=== PATIENT | female | born 1985 | race Caucasian/White ===

== ENCOUNTER 2018-06-11 02:09 | Inpatient (IN) ==
--- OUTSIDE RECORDS SUMMARY | 2018-06-11 02:15 | External Medical Summary | Continuity of Care Document ---
:1985 Author Organization [facility] Address [address] [place], [place] [id number] Phone Care Team Providers Name Role Phone Tony Denney DO Unavailable Allergies, Adverse Reactions, Alerts Substance Reaction Severity Status Penicillins Unknown Unknown Active Medications Medication Instructions Dosage Effective Dates Status Comments (start - stop) cetirizine 10 mg take 1 tablet by 10 MG - Active tablet oral route every day Plus take 1 tablet by Not Available - Active (calcium carbonate) oral route every 27 mg iron-1 mg day tablet esomeprazole take 1 capsule by 20 MG - Active magnesium 20 mg oral route every capsule,delayed day release Singulair 10 mg take 1 tablet by 10 MG - Active tablet oral route every day in the evening as needed Nasal Allergy 55 mcg - Active spray aerosol Problems Condition Effective Dates (start - stop) Clinical Status Decreased movements, third - trimester, unsp Encntr for suprvsn of normal first - preg, third trimester 35 weeks gestation of - 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 exam (general) (routine) w/o abn findings Pap Smear Screening, Cervix Encounter for surveillance of contraceptive pills Encntr for suprvsn of normal , unsp, unsp trimester Encntr for suprvsn of normal first - preg, second trimester 14 weeks gestation of - Maternal care for excess growth, - second tri, unsp Encntr for suprvsn of normal first - preg, second trimester 26 weeks gestation of - Chronic sinusitis, unspecified - Encntr for suprvsn of normal first - preg, first trimester 12 weeks gestation of - Matern care for oth or susp poor fetl - grth, 2nd tri, unsp 19 weeks gestation of - Maternal care for excess growth, - third trimester, unsp 29 weeks gestation of - 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 exam (general) (routine) w/o abn findings Encounter for oth general cnsl and advice on procreation Encntr for suprvsn of normal first - preg, first trimester 10 weeks gestation of - Encntr for suprvsn of normal first - preg, second trimester 19 weeks gestation of - Encntr for suprvsn of normal first - preg, second trimester 23 weeks gestation of - Encntr for suprvsn of normal first - preg, third trimester 38 weeks gestation of - Encntr for suprvsn of normal first - preg, third trimester 29 weeks gestation of - Encntr for suprvsn of normal first - preg, third trimester 31 weeks gestation of - Encntr for suprvsn of normal first - preg, third trimester 37 weeks gestation of - Encntr for suprvsn of normal first - preg, third trimester Encounter For Screening For - Streptococcus B 36 weeks gestation of - Encntr for suprvsn of normal first - preg, third trimester 33 weeks gestation of - Encntr for suprvsn of normal , unsp, unsp trimester Less than 8 weeks gestation of - Initiation of Oral Contraceptives - Active Procedures Procedure Date non-stress test OB Visit 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 Provider: Health PEDRO LUIS, first preg, third 8 700 Bety Acuna PO Box weeks Medical , 700 1522, gestation of [facility], , [facility] [address] SANTOS, 120, Vinayak 120, [id number], Ashish Hinojosa, TOM SANTOS, tel: [phone]. , [place]. tel: tel: [phone] Ottoniel Hughesr for May-0 Ac[place] Referring In Women suprvsn of normal 7-201 Bety. Provider: Health PEDRO LUIS, first preg, third 8 700 Bety [place] PO Box [id number] weeks Medical , 700 1522, gestation of [facility], , [facility] [address] SANTOS, 120, Vinayak 120, [id number], Ashish Hinojosa, TOM SANTOS, tel: [phone]. , [place]. tel: tel: [phone] Ottoniel Braunntr for Apr-3 [place] Referring In Womens suprvsn of normal 1-201 Bety. Provider: Health PEDRO LUIS, first preg, third 8 700 Bety Acuna PO Box trimesterEncounte Medical K, 700 1522, r For [facility] [place], Screening For , [facility] Dr SANTOS, Streptococcus B36 120, Vinayak 120, [id number], weeks gestation Ashish Hinojosa, [place] of TOM SANTOS, tel: [phone]. , [place]. tel: tel: [phone] Ottoniel Hinojosa Decreased Apr-2 Acuna Referring In Womens movements, third 4-201 Bety. Provider: Health PA, trimester, 8 700 Bety [place] PO Box unspEncntr for Medical K, 700 1522, suprvsn of normal [facility], first preg, third , [facility] Dr SANTOS, [email or web address] weeks 120, Vinayak 120, , gestation of Ashish Hinojosa, TOM, TOM, tel: [phone]. , [place]. tel: tel: [phone] Ottoniel Hinojosa Encntr for Jaret-1 Acuna Referring In Womens suprvsn of normal 1-201 Bety. Provider: Health PA, first preg, third 8 700 Bety [place] PO Box [email or web address] weeks Medical K, 700 1522, gestation of [facility], , [facility] Dr SANTOS, 120, Vinayak 120, , Ashish Hinojosa, TOM, TOM, tel:[phone]. , [place]. tel: tel: [phone] Ottoniel Hinojosa Encntr for Joaquín-2 Acuna Referring In Womens suprvsn of normal 8-201 Bety. Provider: Health PA, first preg, third 8 700 Bety Acuna PO Box [email or web address] weeks Medical K, 700 1522, gestation of [facility], , [facility] Dr SANTOS, 120, Vinayak 120, , Ashish Hinojosa, TOM SANTOS, tel: [phone]. , [place]. tel: tel: [phone] Ottoniel Hinojosa Encntr for Joaquín-1 Acuna Referring In Womens suprvsn of normal 4-201 Bety. Provider: Health PA, first preg, third 8 700 Bety [place] PO Box [email or web address] weeks Medical K, 700 1522, gestation of [facility], , [facility] Dr SANTOS, 120, Vinayak 120, , Ashish Hinojosa, TOM SANTOS, tel: [phone]. , [place]. tel: tel: [phone] Ottoniel Hinojosa Maternal care for Joaquín-1 Acuna Referring In Womens Ultrasound excess 4-201 Bety. Provider: Peña CLOUD, growth, third 8 700 Bety [place] PO Box trimester, [email or web address] Medical , 700 1522, weeks gestation [facility], of , [facility] Dr SANTOS, 120, Vinayak 120, [id number], Ashish Hinojosa, TOM, [place], tel: [phone]. , [place]. tel: tel: [phone] Ottoniel Hinojosa Maternal care for May-2 Acuna Referring In Womens excess 5-201 Bety. Provider: Peña CLOUD, growth, second 8 700 Bety [place] PO Box tri, unspEncntr [facility], 700 1522, for suprvsn of [facility], normal first , [facility] Dr SANTOS, preg, second 120, Vinayak 120, , [id number] weeks Ashish Hinojosa, gestation of TOM, TOM, tel: [phone]. , [place]. tel: tel: [phone] Ottoniel Hinojosa Encntr for May-0 Acuna Referring In Womens suprvsn of normal 3-201 Bety. Provider: Peña CLOUD, first preg, 8 700 Bety Cauna PO Box second Medical , 700 1522, [email or web address] weeks [facility], gestation of , [facility] Dr SANTOS, 120, Vinayak 120, , Ashish Hinojosa, TOM, [place], tel: [phone]. , [place]. tel: tel: [phone] Ottoniel Hinojosa Encntr for Apr-0 Acuna Referring In Womens suprvsn of normal 5-201 Bety. Provider: Peña CLOUD, first preg, 8 700 Bety [place] PO Box second Medical , 700 1522, [id number] weeks [facility], gestation of , [facility] Dr SANTOS, 120, Vinayak 120, [id number], Ashish Hinojosa, TOM, TOM, tel: [phone]. , [place]. tel: tel: [phone] Ottoniel Hinojosa Matern care for Apr-0 Acuna Referring In Womens Ultrasound oth or susp poor 5-201 Bety. Provider: Peña CLOUD, fetl grth, 2nd 8 700 Bety [place] PO Box tri, [id number] weeks Medical , 700 1522[facility] Dr SANTOS, 120, Vinayak 120, [id number], Ashish Hinojosa, [place] TOM SANTOS, tel: [phone]. , [place]. tel: tel: [phone] Ottoniel Hinjoosa Encntr for Mar-0 Acuna Referring In Womens suprvsn of normal 5-201 Bety. Provider: Peña CLOUD, first preg, 8 700 Bety [place] PO Box second Medical , 700 1522, [email or web address] [facility] Dr, [facility] Dr SANTOS, 120, Vinayak 120, , Ashish Hinojosa, [place] TOM, TOM, tel: [phone]. , [place]. tel: tel: [phone] Ottoniel Hinojosa Chronic Feb-1 Acuna Referring In Womens sinusitis, 9-201 Bety. Provider: Peña CLOUD, vitaliyifiedEncntr 8 700 Bety Acuna PO Box for suprvsn of Medical K, 700 1522, normal first [facility] [place], preg, first , [facility] Dr SANTOS, [id number] weeks 120, Vinayak 120, , gestation of Ashish Hinojosa, [place] TOM, TOM, tel: [phone]. , [place]. tel: tel: [phone] Ottoniel Hinojosa Encntr for Feb-0 Acuna Referring In Womens suprvsn of normal 5-201 Bety. Provider: Peña CLOUD, first preg, first 8 700 Bety [place] PO Box [id number] weeks Medical , 700 1522, gestation of [facility] [place], , [facility] Dr SANTOS, 120, Vinayak 120, , Ashish Hinojosa, TOM SANTOS, tel: [phone]. , [place]. tel: tel: [phone] Ottoniel Hinojosa Encntr for Oct- Acuna Referring In Womens suprvsn of normal 5-201 Bety. Provider: Peña CLOUD, , unsp, 8 700 Bety Acuna PO Box [facility], 700 1522, trimesterLess [facility] [place], than 8 weeks , [facility] [address] SANTOS, gestation of 120, Vinayak 120, , Ashish Hinojosa, TOM, TOM, tel:[phone]. , [place]. tel: tel: [phone] Ottoniel Hinojosa Encntr for Sep-2 Acuna Referring In Womens suprvsn of normal 7-201 Bety. Provider: Peña CLOUD, , unsp, 7 700 Bety [place] [facility] 700 [facility]22, [facility] [place], , [facility] Dr SANTOS, 120, Vinayak 120, , Ashish Hinojosa, TOM, TOM, tel: [phone]. , [place]. 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 Provider: Peña CLOUD, (routine) w/o abn 7 700 Bety [place] [facility] and advice , [facility] Dr SANTOS, on procreation 120, Vinayak 120, , Ashish Hinojosa, TOM, TOM, tel: [phone]. , [place]. 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 Provider: Peña CLOUD, (routine) w/o abn 6 700 Bety Acuna PO Box findingsPap Smear Medical K, 700 1522, Screening, [place] Roselyn Joe CervixEncchelsey [place], [facility] Dr SANTOS, for surveillance 120, Vinayak 120, , of contraceptive Ashish [place], [place], tel: [phone]. , [place]. tel: tel: [phone] Associates Ashish Nov- Acuna In Womens 5-200 Bety. [facility], 8 700 PO Box Medical 1522, [facility] [place], , [place], 120, [id number], [place], [place], tel: [phone] , [place]. tel: [phone] Family History Family Member Diagnosis Age At Onset Close relative Lymphoma No family history of Thyroid Disorder Mother Hypertension Father Hypertension No family history of Cardiovascular Disease No family history of Stroke Maternal Grandfather Lung Disease No family history of Diabetes Maternal uncle Cancer, colon No family history of Breast Cancer No family history of Ovarian Cancer Maternal Grandfather Melanoma Immunizations Vaccine Date Status Comments Tdap completed Source: New Immunization Record Influenza, injectable, completed Source: New Immunization Record quadrivalent, preservative free, 3 yrs or older Payers Payer name Insurance type Covered democrat ID Authorization(s) [facility] CI [id number] [facility] [id number] [facility] CI [id number] [facility] CI [id number] Social History Type Description Quantity Date Captured Alcohol Use Details No Caffeine Use Details Unknown Tobacco Use Status Unknown Smoking Status Never smoker Vital Signs Date / Height Weight BMI Pulse Blood Temperature Respiratory Body Head BMI Time: Rate Pressure Rate Surface Circumference percentile Area 279.90 36.6 138/78 -2018 lbs 2 mm[Hg] 5:09 kg/m PM eter (2) 279.90 36.6 -2018 lbs 2 4:30 kg/m PM eter (2) Chief Complaint And Reason For Visit Unknown Chief Complaint And Reason For Visit Reason For Referral Reason For Referral Unknown Plan Of Care Date Type Action Status Goal Lifestyle education regarding completed diet Goal Lifestyle education regarding completed diet Appointment Hind, Sushila BOOKED Future Order: Radiology Order Complete OB Ultrasound > 14 Weeks Ordered ([id number]) Future Order: Radiology Order Ultrasound OB Follow-up ([id number]) Ordered Date Type Problem Goal Intervention Status Start Date Unknown. History Of Present Illness Encounter Date Complaint History Of Present Illness This patient has no known history of present illness Functional Status Encounter Date Functional Assessment Cognitive Assessment Unknown Medications Administered Medication Instructions Dosage Effective Dates (start - stop) Status Comments Drug Treatment Unknown Instructions Date Instruction Additional Information labor signs group B strep screening gestational glucose lab screening HIV and other routine tests risk factors identified by history anticipated course of care nutrition and weight gain counseling, special diet toxoplasmosis precautions (cats / raw meat) sexual activity exercise indications for ultrasound influenza vaccine environmental / work hazards travel tobacco (ask, advise, assess, assist and arrange) alcohol illicit / recreational drugs use of any medications (including supplements, vitamins, herbs, OTC drugs) smoking counseling domestic violence seat belt use childbirth classes / hospital facilities hospital registration genetic testing new ob handbook Zika virus assessment & precautions Giving encouragement to exercise Related to Body mass index 33.0-33.9 Lifestyle education regarding diet Related to Body mass index 33.0-33.9 Giving encouragement to exercise Related to Body mass index 32.0-32.9 Lifestyle education regarding diet Related to Body mass index 32.0-32.9
--- OUTSIDE RECORDS SUMMARY | 2018-06-11 02:15 | External Medical Summary | Continuity of Care Document ---
:1985 Author Organization [facility] Address [address] [place], [place] [id number] Phone Care Team Providers Name Role Phone [...] Effective Dates (start - stop) Clinical Status Encntr for suprvsn of normal first - preg, third trimester 33 weeks gestation of - Encntr for cardiovascular rn exam (general) (routine) w/o abn findings Pap [...] trimester, unsp 29 weeks gestation of - Decreased movements, third - trimester, unsp Encntr for suprvsn of normal first - preg, third trimester 35 weeks gestation of - Encntr for cardiovascular rn exam (general) (routine) w/o abn findings Encounter [...] Oral Contraceptives - Active Procedures Procedure Date OB Visit No Charge Results Test Name Date and Time Measure Units Reference Range Abnormal Flag Comments Unknown Advance Directives Directive Yes / No Effective Date File Name Unknown Encounters Encounter Practice Location Reason(s) Diagnoses Date Provider Care Team Description For Visit Members Ottoniel Hinojosa Enchalleyr for Acuna Referring In Womens suprvsn of normal 1-201 Bety. Provider: Health PEDRO LUIS, first preg, third 8 700 Bety Acuna PO Box [facility]ounte Medical K, 700 1522, r For [facility], Screening For , [facility] Dr SANTOS, Streptococcus B36 120, Vinayak 120, [id number], weeks gestation Ashish Hinojosa, [place] of TOM, TOM, tel: [phone]. , [place]. tel: tel: [phone] Associates Ashish Decreased Jaret-2 Acuna Referring In Womens movements, third 4-201 Bety. Provider: Health PEDRO LUIS, trimester, 8 700 Bety Ac[place] PO Box unspEncntr for Medical K, 700 1522, suprvsn of normal [facility], first preg, third , [facility] Dr SANTOS, [id number] weeks 120, Vinayak 120, , gestation of Ashish Hinojosa, TOM SANTOS, tel:[phone]. , [place]. tel: tel: [phone] Ottoniel Hinojosa Encntr for Jaret-1 Acuna Referring In Womens suprvsn of normal 1-201 Bety. Provider: Health PEDRO LUIS, first preg, third 8 700 Bety Ac[place] PO Box [email or web address] weeks Medical K, 700 1522, gestation of [facility], , [facility] Dr SANTOS, 120, Vinayak 120, , Ashish Hinojosa, TOM SANTOS, tel: [phone]. , [place]. tel: tel: [phone] Ottoniel Hinojosa Encntr for Joaquín-2 Acuna Referring In Womens suprvsn of normal 8-201 Bety. Provider: Health PEDRO LUIS, first preg, third 8 700 Bety [place] PO Box [id number] weeks Medical K, 700 1522, gestation of [facility], , [facility] Dr SANTOS, 120, Vinayak 120, , Ashish Hinojosa, TOM SANTOS, tel:[phone]. , [place]. tel: tel: [phone] Ottoniel Hinojosa Encntr for Joaquín-1 Acuna Referring In Womens suprvsn of normal 4-201 Bety. Provider: Health PEDRO LUIS, first preg, third 8 700 Bety Acuna PO Box weeks Medical , 700 1522, gestation of [facility], , [facility] Dr SANTOS, 120, Vinayak 120, [id number], Ashish Hinojosa, TOM, [place], tel: [phone]. , [place]. tel: tel: [phone] Ottoniel Hinojosa Maternal care for Joaquín-1 Acuna Referring In Womens Ultrasound excess 4-201 Bety. Provider: Peña CLOUD, growth, third 8 700 Bety Ac[place] PO Box trimester, [email or web address] Medical , 700 1522, weeks gestation [facility], of , [facility] Dr SANTOS, 120, Vinayak 120, , Ashish Hinojosa, TOM SANTOS, tel: [phone]. , [place]. tel: tel: [phone] Ottoniel iHnojosa Maternal care for May-2 Acuna Referring In Womens excess 5-201 Bety. Provider: Peña CLOUD, growth, second 8 700 Bety [place] PO Box tri, unspEncntr Medical , 700 1522, for suprvsn of [facility], normal first , [facility] Dr SANTOS, preg, second 120, Vinayak 120, [id number], [id number] weeks Ashish Hinojosa, gestation of TOM SANTOS, tel: [phone]. , [place]. tel: tel: [phone] Ottoniel Hinojosa Encntr for May-0 Acuna Referring In Womens suprvsn of normal 3-201 Bety. Provider: Peña CLOUD, first preg, 8 700 Bety [place] PO Box second Medical K, 700 1522, [email or web address] weeks [facility], gestation of , [facility] Dr SANTOS, 120, Vinayak 120, , Ashish Hinojosa, TOM, TOM, tel: [phone]. , [place]. tel: tel: [phone] Ottoniel Hinojosa Encntr for Apr-0 Acuna Referring In Womens suprvsn of normal 5-201 Bety. Provider: Peña CLOUD, first preg, 8 700 Bety Ac[place] PO Box second Medical , 700 1522, [id number] weeks [facility], gestation of , [facility] Dr SANTOS, 120, Vinayak 120, , Ashish Hinojosa, TOM, TOM, tel: [phone]. , [place]. tel: tel: [phone] Ottoniel Hinojosa Matern care for Apr-0 Acuna Referring In Womens Ultrasound oth or susp poor 5-201 Bety. Provider: Peña CLOUD, fetl grth, 2nd 8 700 Bety [place] PO Box tri, [email or web address] weeks [facility], 700 1522, gestation of [facility], , [facility] Dr SANTOS, 120, Vinayak 120, , Ashish Hinojosa, TOM, TOM, tel: [phone]. , [place]. tel: tel: [phone] Ottoniel Hinojosa Encntr for Mar-0 Acuna Referring In Womens suprvsn of normal 5-201 Bety. Provider: Peña CLOUD, first preg, 8 700 Bety Acuna PO Box [facility], 700 1522, [email or web address] weeks [facility], gestation of , [facility] Dr SANTOS, 120, Vinayak 120, , Ashish Hinojosa, TOM, TOM, tel: [phone]. , [place]. tel: tel: [phone] Ottoniel Hinojosa Chronic Feb-1 Ac[place] Referring In Womens sinusitis, 9-201 Bety. Provider: Peña CLOUD, vitaliyifiedEncntr 8 700 Bety [place] PO Box for suprvsn of Medical K, 700 1522, normal first [place] [facility] Joe, preg, first , [facility] Dr SANTOS, [email or web address] weeks 120, Vinayak 120, , gestation of Ashish Hinojosa, TOM, TOM, tel: [phone]. , [place]. tel: tel: [phone] Ottoniel Hinojosa Encntr for Feb-0 Acuna Referring In Womens suprvsn of normal 5-201 Bety. Provider: Peña CLOUD, first preg, first 8 700 Bety Acuna PO Box [id number] weeks [facility], 700 1522, [facility] , [facility] Dr SANTOS, 120, Vinayak 120, , Ashish Hinojosa, TOM, [place], tel:[phone]. , [place]. tel: tel: [phone] Ottoniel Hinojosa Encntr for Barron- Acuna Referring In Womens suprvsn of normal 5-201 Bety. Provider: Peña CLOUD, , unsp, 8 700 Bety Acuna PO Box [facility], 700 1522, trimesterLess [facility], than 8 weeks , [facility] Dr SANTOS, gestation of 120, Vinayak 120, , Ashish Hinojosa, TOM, TOM, tel: [phone]. , [place]. tel: tel: [phone] Ottoniel Hinojosa Encntr for Dec-2 Acuna Referring In Womens suprvsn of normal 7-201 Bety. Provider: Peña CLOUD, , unsp, 7 700 Bety Acuna PO Box unsp [facility], 700 1522, [facility] Dr Tatyana, [facility] Dr SANTOS, 120, Vinayak 120, , Ashish Hinojosa, TOM, TOM, tel: [phone]. , [place]. tel: tel: [phone] Ottoniel Hinojosa Encntr for cardiovascular rn Oct-0 Acuna Referring In Womens exam (general) 9-201 Bety. Provider: Peña CLOUD, (routine) w/o abn 7 700 Bety Acuna PO Box [facility], 700 1522, [facility] and advice , [facility] Dr SANTOS, on procreation 120, Vinayak 120, [id number], Ashish Hinojosa, TOM, TOM, tel: [phone]. , [place]. tel: tel: [phone] Ottoniel Hinojosa Encntr for cardiovascular rn Acuna Referring In Womens exam (general) 5-201 Bety. Provider: Health PA, (routine) w/o abn 6 700 Bety Ac[place] PO Box findingsPap Smear Medical , 700 1522, Screening, [facility], CervixEncounter , [facility] Dr SANTOS, for surveillance 120, Vinayak 120, [id number], of contraceptive Ashish Hinojosa, pills TOM, TOM, tel: [phone]. , [place]. tel: tel: [phone] Ottoniel Hinojosa Nov- Acuna In Womens 5-200 Bety. Health PEDRO LUIS, 8 700 PO Box Medical [address], [place] Dr Tatyana, [facility] TOM, 120, [id number], Hinojosa, TOM, tel: [phone] , [place]. tel: [phone] Family History Family Member Diagnosis Age At [...] older Payers Payer name Insurance type Covered constitution party ID Authorization(s) [facility] CI [id number] SHANIA LUNA [id number] [facility] CI [id number] [facility] CI [id number] Social History Type Description Quantity Date Captured Alcohol Use Details No Caffeine Use Details Unknown Tobacco Use Status Unknown Smoking Status Never smoker Vital Signs Date / Height Weight BMI Pulse Blood Temperature Respiratory Body Head BMI Time: Rate Pressure Rate Surface Circumference percentile Area 279.90 36.6 -2018 lbs 2 4:26 kg/m PM eter (2) 278.80 36.4 145/88 -2018 lbs 8 mm[Hg] 3:26 kg/m PM eter (2) Chief Complaint And Reason For Visit Unknown Chief Complaint And Reason For Visit Reason For Referral Reason For Referral Unknown Plan Of Care Date Type Action Status Goal Lifestyle education regarding completed diet Goal Lifestyle education regarding completed diet Appointment Sushila Leung BOOKED Future Order: Radiology Order Complete OB Ultrasound > 14 Weeks Ordered ([id number]) Future Order: Radiology Order Ultrasound OB Follow-up ([id number]) Ordered Date Type Problem Goal Intervention Status [...]
--- OUTSIDE RECORDS SUMMARY | 2018-06-11 02:15 | External Medical Summary | Continuity of Care Document ---
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 Per the CDC and ACOG, swabbing both the lower vagina andrectum substantially increases the yield of detection compared withsampling the vagina alone. .Penicillin G, ampicillin, or cefazolin are indicated for intrapartumprophylaxis of GBS colonization. Reflex susceptibilitytesting should be performed prior to use of clindamycin only on GBSisolates from penicillin-allergic women who are considered a high riskfor anaphylaxis. Treatment with vancomycin without additional testingis warranted if resistance to clindamycin is noted. Advance Directives Directive Yes / No Effective Date File Name Unknown Encounters Encounter Practice Location Reason(s) Diagnoses Date Provider Care Team Description For Visit Members Ottoniel Hinojosa Encntr for May- Acuna Referring In Womens suprvsn of normal 0-201 Bety. Provider: Peña CLOUD, first preg, third 8 700 Bety Acuna PO Box [id number] [facility], 700 1522, gestation of [facility] Dr [facility] Dr SANTOS, 120, Vinayak 120, [id number], Ashish Hinojosa, TOM, [place], tel: [phone]. , [place]. tel: tel: [phone] Ottoniel Hinojosa Encntr for May- Acuna Referring In Womens suprvsn of normal 4-201 Bety. Provider: Peña CLOUD, first preg, third 8 700 Bety Acuna PO Box [email or web address] [facility], 700 1522, gestation of [facility] , [facility] Dr SANTOS, 120, Vinayak 120, [id number], Ashish Hinojosa, TOM [place], tel: [phone]. , [place]. tel: tel: [phone] Ottoniel Hinojosa Encntr for Aug-0 Acuna Referring In Womens suprvsn of normal 7-201 Bety. Provider: Health PEDRO LUIS, first preg, third 8 700 Bety Acuna PO Box [id number] weeks Medical , 700 1522, gestation of [facility], , [facility] Dr SANTOS, 120, Vinayak 120, , Ashish Hinojosa, TOM SANTOS, tel: [phone]. , [place]. tel: tel: [phone] Ottoniel Hinojosa Encntr for Jaret-3 Acuna Referring In Womens suprvsn of normal 1-201 Bety. Provider: Peña CLOUD, first preg, third 8 700 Bety Acuna PO Box trimesterEncounte Medical , 700 1522, r For [facility], Screening For Dr, [facility] Dr SANTOS, Streptococcus B36 120, Vinayak 120, , weeks gestation Ashish Hinojosa, [place] of TOM, TOM, tel: [phone]. , [place]. tel: tel: [phone] Ottoniel Hinojosa Decreased Jaret-2 Acuna Referring In Womens movements, third 4-201 Bety. Provider: Peña CLOUD, trimester, 8 700 Bety Acuna PO Box unspEncntr for Medical K, 700 1522, suprvsn of normal [facility], first preg, third , [facility] Dr SANTOS, [email or web address] weeks 120, Vinayak 120, , gestation of Ashish Hinojosa, [place] TOM, TOM, tel: [phone]. , [place]. tel: tel: [phone] Ottoniel Hinojosa Encntr for Jaret-1 Acuna Referring In Womens suprvsn of normal 1-201 Bety. Provider: Peña CLOUD, first preg, third 8 700 Bety Acuna PO Box weeks Medical , 700 1522, gestation of [facility], , [facility] Dr SANTOS, 120, Vinayak 120, , Ashish Hinojosa, RUST, [place], tel: [phone]. , [place]. tel: tel: [phone] Ottoniel Hinojosa Encntr for Joaquín-2 Acuna Referring In Womens suprvsn of normal 8-201 Bety. Provider: Health PEDRO LUIS, first preg, third 8 700 Bety Acuna PO Box [id number] [facility], 700 1522, gestation of [facility], , [facility] Dr SANTOS, 120, Vinayak 120, [id number], Ashish Hinojosa, TOM, [place], tel: [phone]. , [place]. tel: tel: [phone] Ottoniel Hinojosa Encntr for Joaquín-1 Acuna Referring In Womens suprvsn of normal 4-201 Bety. Provider: Health PEDRO LUIS, first preg, third 8 700 Bety Acuna PO Box [id number] [facility], 700 1522, gestation of [facility], , [facility] Dr SANTOS, 120, Vinayak 120, [id number], Ashish Hinojosa, TOM, [place], tel: [phone]. , [place]. tel: tel: [phone] Ottoniel Hinojosa Maternal care for Joaquín-1 Acuna Referring In Womens Ultrasound excess 4-201 Bety. Provider: Peña CLOUD, growth, third 8 700 Bety Acuna PO Box trimester, [email or web address] [facility], 700 1522, weeks gestation [facility], of , [facility] Dr SANTOS, 120, Vinayak 120, [id number], Ashish Hinojosa, TOM, [place], tel: [phone]. , [place]. tel: tel: [phone] Hinojosa Maternal care for May-2 Acuna Referring In Womens excess 5-201 Bety. Provider: Peña CLOUD, growth, second 8 700 Bety Ac[place] PO Box tri, unspEncntr [facility], 700 1522, for suprvsn of [facility], normal first , [facility] Dr SANTOS, preg, second 120, Vinayak 120, [id number], [email or web address] weeks Ashish Hinojosa, gestation of TOM, [place], tel: [phone]. , [place]. tel: tel: [phone] Ottoniel Hinojosa Encntr for May-0 Acuna Referring In Womens suprvsn of normal 3-201 Bety. Provider: Peña CLOUD, first preg, 8 700 Bety Acuna PO Box [facility], 700 1522, [id number] weeks [facility], gestation of Dr, [facility] Dr SANTOS, 120, Vinayak 120, [id number], Ashish Hinojosa, TOM, TOM, tel:[phone]. , [place]. tel: tel: [phone] Ottoniel Hinojosa Encntr for Apr-0 Acuna Referring In Womens suprvsn of normal 5-201 Bety. Provider: Peña CLOUD, first preg, 8 700 Bety Acuna PO Box [facility], 700 1522, [id number] weeks [facility], gestation of Dr, [facility] Dr SANTOS, 120, Vinayak 120, , Ashish Hinojosa, TOM, TOM, tel: [phone]. , [place]. tel: tel: [phone] Ottoniel Hinojosa Matern care for Apr-0 Acuna Referring In Womens Ultrasound oth or susp poor 5-201 Bety. Provider: eda Gorman, 2nd 8 700 Bety Ac[place] PO Box tri, [email or web address] weeks Medical , 700 1522, gestation of [facility], , [facility] Dr SANTOS, 120, Vinayak 120, [id number], Ashish Hinojosa, TOM SANTOS, tel:[phone]. , [place]. tel: tel: [phone] Ottoniel Hinojosa Encntr for Mar-0 Acuna Referring In Womens suprvsn of normal 5-201 Bety. Provider: Peña CLOUD, first preg, 8 700 Bety Acuna PO Box [facility], 700 1522, [email or web address] weeks [facility] [place], gestation of Dr, [facility] Dr SANTOS, 120, Vinayak 120, , Ashish Hinojosa, TOM, TOM, tel: [phone]. , [place]. 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 Provider: Health PEDRO LUIS, unspecifiedEncntr 8 700 Bety [place] PO Box for suprvsn of Medical , 700 1522, [facility], [facility], first , [facility] Dr SANTOS, [email or web address] weeks 120, Vinayak 120, , gestation of Ashish Hinojosa, TOM, TOM, tel: [phone]. , [place]. tel: tel: [phone] Ottoniel Braunntodilon for Fe-0 Acuna Referring In Womens suprvsn of normal 5-201 Bety. Provider: Peña CLOUD, first preg, first 8 700 Bety Ac[place] PO Box [id number] weeks Medical , 700 1522, gestation of [facility] [place], , [facility] Dr SANTOS, 120, Vinayak 120, , Ashish Hinojosa, TOM, TOM, tel: [phone]. , [place]. tel: tel: [phone] Ottoniel Hinojosa Encntr for Barron- Acuna Referring In Womens suprvsn of normal 5-201 Bety. Provider: Peña CLOUD, , unsp, 8 700 Bety Ac[place] PO Box unsp Medical , 700 1522, trimesterLess [facility] [place], than 8 weeks , [facility] Dr SANTOS, gestation of 120, Vinayak 120, , Ashish Hinojosa, TOM, TOM, tel: [phone]. , [place]. tel: tel: [phone] Ottoniel Hinojosa Encntr for Dec-2 Acuna Referring In Womens suprvsn of normal 7-201 Bety. Provider: Health PEDRO LUIS, , unsp, 7 700 Bety Ac[place] PO Box unsp trimester Medical , 700 1522, [place] [address], [facility] Dr SANTOS, 120, Vinayak 120, [id number], Ashish Hinojosa, TOM, [place], tel: [phone]. , [place]. 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 Provider: Health PEDRO LUIS, (routine) w/o abn 7 700 Bety Ac[place] PO Box findingsEncounter [facility], 700 1522, for oth general [place] fredy Hagan and advice , [facility] Dr SANTOS, on procreation 120, Vinayak 120, , Ashish Hinojosa, TOM, [place], tel:[phone]. , [place]. 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 Provider: Health PEDRO LUIS, (routine) w/o abn 6 700 Bety [place] PO Box findingsPap Smear [facility], 700 1522, Screening, [place], CervixJessy [place], [facility] Dr SANTOS, for surveillance 120, Vinayak 120, , of contraceptive Ashish Hinojosa, pills TOM, [place], tel:[phone]. , [place]. tel: tel: [phone] Ottoniel Hinojosa Fe- Acuna In Womens 5-200 Bety. Health PEDRO LUIS, 8 700 PO Box Medical 1522, [place] Dr Tatyana, [email or web address] TOM, 120, , [facility], tel: [phone] , [place]. tel: [phone] Family History Family Member Diagnosis Age At [...] older Payers Payer name Insurance type Covered green party ID Authorization(s) [facility] CI [id number] [place] [id number] [facility] CI [id number] [facility] CI [id number] Social History Type Description Quantity Date Captured Alcohol Use Details No Caffeine Use Details No Tobacco Use Status Never smoked tobacco Smoking Status Never smoker Vital Signs Date / Height Weight BMI Pulse Blood Temperature Respiratory Body Head BMI Time: Rate Pressure Rate Surface Circumference percentile Area 281.20 36.7 138/88 2018 lbs 9 mm[Hg] 3:45 kg/m PM eter (2) Chief Complaint And Reason For Visit Unknown Chief Complaint And Reason For Visit Reason For Referral Reason For Referral Unknown Plan Of Care Date Type Action Status Goal Lifestyle education regarding completed diet Goal Lifestyle education regarding completed diet Appointment Sushila Leung BOOKED Appointment Sushila Leung-4p Cervical BOOKED Ripening Appointment Sushila Leung BOOKED Future Order: Radiology Order Complete OB Ultrasound > 14 Weeks Ordered ([id number]) Future Order: Radiology Order Ultrasound OB Follow-up ([id number]) Ordered Date Type Problem Goal Intervention Status [...]
--- OUTSIDE RECORDS SUMMARY | 2018-06-11 02:15 | External Medical Summary | Continuity of Care Document ---
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 , [place]. tel: tel: [phone] Ottoniel Hinojosa Encntr for Joaquín-2 Acuna Referring In Womens suprvsn of normal 8-201 Bety. Provider: Health PEDRO LUIS, first preg, third 8 700 Bety Acuna PO Box [email or web address] weeks [facility], 700 1522, gestation of [facility], , [facility] Dr SANTOS, 120, Vinayak 120, [id number], Ashish Hinojosa, [place], [place], tel: [phone]. , [place]. tel: tel: [phone] Ottoniel Hinojosa Encntr for Joaquín-1 Acuna Referring In Womens suprvsn of normal 4-201 Bety. Provider: Health PEDRO LUIS, first preg, third 8 700 Bety Acuna PO Box [id number] weeks [facility], 700 1522, gestation of [facility], , [facility] Dr SANTOS, 120, Vinayak 120, [id number], Ashish Hinojosa, [place], [place], tel: [phone]. , [place]. tel: tel: [phone] Ottoniel Hinojosa Maternal care for Joaquín-1 Acuna Referring In Womens Ultrasound excess 4-201 Bety. Provider: Peña CLOUD, growth, third 8 700 Bety Acuna PO Box trimester, [email or web address] [facility], 700 1522, weeks gestation [facility], of , [facility] Dr SANTOS, 120, Vinayak 120, [id number], Ashish Hinojosa, [place], [place], tel: [phone]. , [place]. tel: tel: [phone] Hinojosa Maternal care for May-2 Acuna Referring In Womens excess 5-201 Bety. Provider: Peña CLOUD, growth, second 8 700 Bety Acuna PO Box tri, unspEncntr [facility], 700 1522, for suprvsn of [facility], normal first , [facility] Dr SANTOS, preg, second 120, Vinayak 120, [id number], [email or web address] weeks Ashish Hinojosa, gestation of [place], [place], tel: [phone]. , [place]. tel: tel: [phone] Ottoniel Hinojosa Encntr for May-0 Acuna Referring In Womens suprvsn of normal 3-201 Bety. Provider: Peña CLOUD, first preg, 8 700 Bety Acuna PO Box [facility], 700 1522, [email or web address] weeks [facility], gestation of Dr, [facility] Dr SANTOS, 120, Vinayak 120, [id number], Ashish Hinojosa, TOM, TOM, tel:[phone]. , [place]. tel: tel: [phone] Ottoniel Hinojosa Encntr for Apr-0 Acuna Referring In Womens suprvsn of normal 5-201 Bety. Provider: Peña CLOUD, first preg, 8 700 Bety Acuna PO Box [facility], 700 1522, [email or web address] weeks [facility], gestation of Dr, [facility] Dr SANTOS, 120, Vinayak 120, , Ashish Hinojosa, TOM, TOM, tel: [phone]. , [place]. tel: tel: [phone] Ottoniel Hinojosa Matern care for Apr-0 Acuna Referring In Womens Ultrasound oth or susp poor 5-201 Bety. Provider: eda Gorman, 2nd 8 700 Bety Acuna PO Box tri, [email or web address] weeks Medical , 700 1522, gestation of [facility], , [facility] Dr SANTOS, 120, Vinayak 120, [id number], Ashish Hinojosa, TOM [place], tel:[phone]. , [place]. tel: tel: [phone] Ottoniel Hinojosa Encntr for Mar-0 Acuna Referring In Womens suprvsn of normal 5-201 Bety. Provider: Peña CLOUD, first preg, 8 700 Bety Acuna PO Box [facility], 700 1522, [id number] weeks [facility], gestation of Dr, [facility] Dr SANTOS, 120, Vinayak 120, , Ashish Hinojosa, TOM, TOM, tel: [phone]. , [place]. 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 Provider: Health PEDRO LUIS, unspecifiedEncntr 8 700 Bety Acuna PO Box for suprvsn of Medical , 700 1522, normal [facility], [facility], first , [facility] Dr SANTOS, [email or web address] weeks 120, Vinayak 120, , gestation of Ashish Hinojosa, TOM, TOM, tel: [phone]. , [place]. tel: tel: [phone] Ottoniel Braunntodilon for Fe-0 Acuna Referring In Womens suprvsn of normal 5-201 Bety. Provider: Peña CLOUD, first preg, first 8 700 Bety Acuna PO Box [email or web address] weeks Medical , 700 1522, gestation of [facility] [place], , [facility] Dr SANTOS, 120, Vinayak 120, , Ashish Hinojosa, TOM, TOM, tel: [phone]. , [place]. tel: tel: [phone] Ottoniel Hinojosa Encntr for Barron- Acuna Referring In Womens suprvsn of normal 5-201 Bety. Provider: Peña CLOUD, , unsp, 8 700 Bety Acuna PO Box unsp Medical , 700 1522, trimesterLess [facility] [place], than 8 weeks , [facility] Dr SANTOS, gestation of 120, Vinayak 120, , Ashish Hinojosa, TOM, TOM, tel: [phone]. , [place]. tel: tel: [phone] Ottoniel Hinojosa Encntr for Dec-2 Acuna Referring In Womens suprvsn of normal 7-201 Bety. Provider: Health PEDRO LUIS, , unsp, 7 700 Bety Acuna PO Box unsp trimester Medical , 700 1522, [place] [address], [facility] Dr SANTOS, 120, Vinayak 120, [id number], Ashish Hinojosa, [place], [place], tel: [phone]. , [place]. 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 Provider: Health PEDRO LUIS, (routine) w/o abn 7 700 Bety Acuna PO Box findingsEncounter [facility], 700 1522, for oth general [place] fredy Hagan and advice , [facility] Dr SANTOS, on procreation 120, Vinayak 120, , Ashish Hinojosa, [place], [place], tel:[phone]. , [place]. 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 Provider: Health PEDRO LUIS, (routine) w/o abn 6 700 Bety Acuna PO Box findingsPap Smear [facility], 700 1522, Screening, [place] Roselyn Joe, CervixJessy [place], [facility] Dr SANTOS, for surveillance 120, Vinayak 120, , of contraceptive Ashish Hinojosa, pills [place], [place], tel:[phone]. , [place]. tel: tel: [phone] Ottoniel Hinojosa Fe- Acuna In Womens 5-200 Bety. Health PEDRO LUIS, 8 700 PO Box Medical 1522, [place] Dr Tatyana, [facility] T[place], 120, , AshishRUST TOM, tel: [phone] , [place]. tel: [phone] Family History Family Member Diagnosis Age At [...] older Payers Payer name Insurance type Covered libertarian ID Authorization(s) [facility] CI [id number] [employer] [place] BL [id number] [facility] CI [id number] [facility] CI [id number] Social History Type Description Quantity Date Captured Alcohol Use Details No Caffeine Use Details Unknown Tobacco Use Status Unknown Smoking Status Never smoker Vital Signs Date / Height Weight BMI Pulse Blood Temperature Respiratory Body Head BMI Time: Rate Pressure Rate Surface Circumference percentile Area 274.40 35.9 137/86 -2018 lbs 0 mm[Hg] 10:49 kg/m AM eter (2) Chief Complaint And Reason For Visit Unknown Chief Complaint And Reason For Visit Reason For Referral Reason For Referral Unknown Plan Of Care Date Type Action Status Goal Lifestyle education regarding completed diet Goal Lifestyle education regarding completed diet Appointment Sushila Leung BOOKED Future Order: Radiology Order Complete OB Ultrasound > 14 Weeks Ordered ([id number]) Future Order: Radiology Order Ultrasound OB Follow-up ([id number]) Ordered Date Type Problem Goal Intervention Status Start Date Unknown. History Of Present Illness Encounter Date Complaint History Of Present Illness This patient has no known history of present illness Functional Status Encounter Date Functional Assessment Cognitive Assessment Unknown Medications Administered Medication Instructions Dosage Effective Dates (start - stop) Status Comments Drug Treatment Unknown Instructions Date Instruction Additional Information gestational glucose lab screening HIV and other [...]
--- OUTSIDE RECORDS SUMMARY | 2018-06-11 02:15 | External Medical Summary | Continuity of Care Document ---
:1985 Author Organization [facility] Address [address] [place], [place] [id number] Phone Care Team Providers Name Role Phone Tony Denney DO Unavailable Allergies, Adverse Reactions, Alerts Substance Reaction Severity Status Penicillins Unknown Unknown Active Medications Medication Instructions Dosage Effective Dates Status Comments (start - stop) cetirizine 10 mg take 1 tablet by 10 MG - Active tablet oral route every day Plus take 1 tablet by Not Available - Active (calcium oral route every carbonate) 27 mg day iron-1 mg tablet esomeprazole take 1 capsule by 20 MG - Active magnesium 20 mg oral route every capsule,delayed day release azithromycin 250 take 2 tablet by 500 MG - No Longer mg tablet oral route every Active day for 1 day then 1 tablet (250 mg) by oral route once daily for 4 days Problems Condition Effective Dates (start - stop) Clinical Status Chronic sinusitis, unspecified - Encntr for suprvsn of normal first - preg, first trimester 12 weeks gestation of - 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) (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) w/o abn findings Pap Smear Screening, Cervix Encounter for surveillance of contraceptive pills Encntr for suprvsn of normal , unsp, unsp trimester Encntr for suprvsn of normal first - preg, second trimester 14 weeks gestation of - 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) (routine) w/o abn findings Encounter for ot general cnsl and advice on procreation Encntr for suprvsn of normal first - preg, first trimester 10 weeks gestation of - Encntr for suprvsn of normal , unsp, unsp trimester Less than 8 weeks gestation of - Initiation of Oral Contraceptives - Active Procedures Procedure Date 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 Provider: perri Gorman, second 8 700 Bety Acuna PO Box [id number] weeks Medical , 700 1522, gestation of [facility] , [facility] Dr SANTOS, 120, Vinayak 120, [id number], Ashish Hinojosa, [place], [place], tel: [phone]. , [place]. tel: tel: [phone] [facility] Chronic sinusitis, Nov- Acuna Referring In Womens unspecifiedEncntr 9-201 Bety. Provider: Peña CLOUD, for suprvsn of 8 700 Bety Acuna PO Box normal first preg, Medical , 700 1522, first [id number] [facility], weeks gestation of , [facility] Dr SANTOS, 120, Vinayak 120, , Ashish Hinojosa, TOM [place], tel: [phone]. , [place]. tel: tel: [phone] [facility] Encntr for suprvsn Fe-0 Acuna Referring In Womens of normal first 5-201 Bety. Provider: Peña CLOUD, preg, first 8 700 Bety Acuna PO Box [email or web address] weeks Medical , 700 1522, gestation of [facility], , [facility] Dr SANTOS, 120, Vinayak 120, [id number], Ashish Hinojosa, [place], [place], tel:[phone]. , [place]. tel: tel: [phone] [facility] Encntr for suprvsn Oct- Acuna Referring In Womens of normal - Bety. Provider: Health PEDRO LUIS, , unsp, 8 700 Bety Acuna PO Box unsp trimesterLess Medical , 700 1522, than 8 weeks [facility] Tatyana, gestation of Dr, [facility] Dr SANTOS, 120, Vinayak 120, , Ashish Hinojosa, [place], [place], tel: [phone]. , [place]. tel: tel: [phone] Ottoniel Hinojosa Encntr for suprvsn Sep- Acuna Referring In Womens of normal - Bety. Provider: Peña CLOUD, , unsp, 7 700 Bety Acuna PO Box unsp trimester Medical , 700 1522, [place] Roselyn Joe, , [facility] Dr SANTOS, 120, Vinayak 120, [id number], Ashish Hinojosa, [place], [place], tel: [phone]. , [place]. 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 Provider: Health PEDRO LUIS, (routine) w/o abn 7 700 Bety Acuna PO Box findingsEncounter [facility], 700 1522, for ot general [facility] Tatyana, cnsdenita and advice on , [facility] Dr SANTOS, procreation 120, Vinayak 120, [id number], Ashish Hinojosa, TOM, TOM, tel: [phone]. , [place]. 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 Provider: Health PEDRO LUIS, (routine) w/o abn 6 700 Bety Acuna PO Box findingsPap Smear Medical , 700 1522, [facility] [place], [facility] Dr SANTOS, for surveillance 120, Vinayak 120, [id number], of contraceptive Ashish Hinojosa, pills TOM, TOM, tel: [phone]. , [place]. tel: tel: [phone] [facility] Acuna In Womens 5-200 Bety. [facility], 8 700 PO Box Medical 1522, [place] [address] Tatyana, [facility] TOM, 120, [id number], Hinojosa, [place], tel: [phone] , [place]. tel: [phone] Family History Family Member Diagnosis Age At [...] Grandfather Melanoma Immunizations Vaccine Date Status Comments Influenza, injectable, completed Source: New Immunization Record quadrivalent, preservative free, 3 yrs or older Payers Payer name Insurance type Covered constitution party ID Authorization(s) [facility] CI [id number] [facility] [id number] [facility] CI [id number] Social History Type Description Quantity Date Captured Alcohol Use Details No Caffeine Use Details No Tobacco Use Status Never smoked tobacco Smoking Status Never smoker Vital Signs Date / Height Weight BMI Pulse Blood Temperature Respiratory Body Head BMI Time: Rate Pressure Rate Surface Circumference percentile Area 250.80 32.8 155/76 -2018 lbs 1 mm[Hg] 3:45 kg/m PM eter (2) Chief Complaint And Reason For Visit Unknown Chief Complaint And Reason For Visit Reason For Referral Reason For Referral Unknown Plan Of Care Date Type Action Status Goal Lifestyle education regarding diet completed Goal Lifestyle education regarding diet completed Appointment Sushila Leung BOOKED Appointment Sushila Leung BOOKED Date Type Problem Goal Intervention Status Start Date Unknown. History Of Present Illness Encounter Date Complaint History Of Present Illness This patient has no known history of present illness Functional Status Encounter Date Functional Assessment Cognitive Assessment Unknown Medications Administered Medication Instructions Dosage Effective Dates (start - stop) Status Comments Drug Treatment Unknown Instructions Date Instruction Additional Information HIV and other routine tests risk factors [...]
--- OUTSIDE RECORDS SUMMARY | 2018-06-11 02:15 | External Medical Summary | Continuity of Care Document ---
:1985 Author Organization [facility] Address [address] [place], [place] [address] Phone Care Team Providers Name Role Phone RyanTony carlson DO Unavailable Unavailable Allergies, Adverse Reactions, Alerts Substance Reaction Severity Status Penicillins Unknown Unknown Active Medications Medication Instructions Dosage Effective Dates Status Comments (start - stop) Plus take 1 tablet by Not Available - Active (calcium oral route every carbonate) 27 mg day iron-1 mg tablet cetirizine 10 mg take 1 tablet by 10 MG - Active tablet oral route every day Problems Condition Effective Dates (start - stop) Clinical Status Encntr for suprvsn of normal , unsp, unsp trimester 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) (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) w/o abn findings Pap Smear Screening, Cervix Encounter for surveillance of contraceptive pills 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 Provider: Health [place], complaint) , unsp, 7 700 Bety Acuna PO Box unsp trimester Medical K, 700 1522, [place] [facility] [address] Tatyana, [address] [place] [address] [place], 120, Vinayak 120, [id number], Ashish Hinojosa, [place], tel:[phone]. , [place]. 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 Provider: Health PEDRO LUIS, (routine) w/o abn 7 700 Bety Acuna PO Box findingsEncounter [facility], 700 1522, for oth general [place] [facility] fredy Joe and advice on , [address] [facility] Dr SANTOS, procreation 120, Vinayak 120, , Ashish Hinojosa, TOM, TOM, tel:[phone]. , [place]. 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 Provider: Peña CLOUD, (routine) w/o abn 6 700 Bety Acuna PO Box findingsPap Smear Medical , 700 1522, Screening, [place] Roselyn Joe CervixJessy [place], [facility] Dr SANTOS, for surveillance 120, Vinayak 120, , of contraceptive Ashish Hinojosa, pills TOM, TOM, tel: [phone]. , [place]. tel: tel: [phone] Ottoniel Hinojosa Nov- Acuna In Womens 5-200 Bety. Health PEDRO LUIS, 8 700 PO Box Medical 15[address], [place] [address] Tatyana, [facility] TOM, 120, , Ashish, TOM, tel: [phone] , [place]. tel: [phone] Family History Family Member Diagnosis Age At [...] Grandfather Melanoma Immunizations Vaccine Date Status Comments Unknown Payers Payer name Insurance type Covered republican ID Authorization(s) [facility] [id number] [facility] [place] BL [id number] Social History Type Description Quantity Date Captured Alcohol Use Details Caffeine Use Details Unknown Tobacco Use Status Never smoked tobacco Smoking Status Never smoker Non-Smoking Tobacco Use : No Details Available : No Details Available Details Vital Signs Date / Height Weight BMI Pulse Blood Temperature Respiratory Body Head BMI Time: Rate Pressure Rate Surface Circumference percentile Area 73.25 260.70 34.1 87 143/ in lbs 6 /min mm[Hg] 3:59 kg/m PM eter (2) Chief Complaint And Reason For Visit Most recent encounter only, dated '10/11/2017 16:00'. early OB (chief complaint). Description: By LMP, she is 5w1d, EDC 06/12/18. She's having mildnausea and breast tenderness. No pain or bleeding. She has questions about her allergy meds. Reason For Referral Reason For Referral Unknown Plan Of Care Date Type Action Status Goal Lifestyle education regarding diet completed Goal Lifestyle education regarding diet completed Appointment Sushila Leung BOOKED Date Type Problem Goal Intervention Status Start Date Unknown. History Of Present Illness Encounter Date Complaint History Of Present Illness early OB By LMP, she is 5w1d, EDC 06/12/18. She's having mild nausea and breast tenderness. No pain or bleeding. She has questions about her allergy meds. Functional Status Encounter Date Functional Assessment Cognitive Assessment Unknown Medications Administered Medication Instructions Dosage Effective Dates (start - stop) Status Comments Drug Treatment Unknown Instructions Date Instruction Additional Information Giving encouragement to exercise Related to Body mass index 33.0- 33.9 Lifestyle education regarding diet Related to Body mass index 33.0-33.9 Giving encouragement to exercise Related to Body mass index 32.0- 32.9 Lifestyle education regarding diet Related to Body mass index 32.0-32.9
--- OUTSIDE RECORDS SUMMARY | 2018-06-11 02:15 | External Medical Summary | Referral Summary ---
:1985 Author Organization [facility] Address [address] [place] [address] Care Team Providers Name Role Phone Tony Denney Primary Care Physician Encounter VC Date(s): 08/28/17 - 08/28/17 [facility] [address] [place] [address] [place] Discharge Diagnosis: Dizziness and giddiness Discharge Disposition: 01-Home or Self Care Attending Physician: Deshawn Almonte MD Admitting Physician: Deshawn Almonte MD Referring Physician: Tony Denney DO Vital Signs Most recent to oldest [Reference Range]: 1 Temperature Tympanic [36.6-38.1 degC] 36.6 degC (08/28/17 2:14 PM) Blood Pressure [90-140/60-90 mmHg] 126/82 mmHg (08/28/17 2:14 PM) Problem List Condition Effective Dates Status Health Status Informant Obesity(Confirmed) Active patient Allergies, Adverse Reactions, Alerts Substance Reaction Severity Status penicillin Active Medications cetirizine 10 mg oral tablet mg tabs, Oral, Daily, 0 Refill(s) Start Date: 06/15/16 Status: OrderedQnasl 40 mcg/inh nasal spray 1 sprays, Nasal, Daily, in each nostril, # 4.9 g, 0 Refill(s) Start Date: 06/15/16 Status: Ordered Immunizations Given and Recorded Vaccine Date Status Refusal Reason hepatitis A adult vaccine 04/12/04 Recorded Procedures Procedure Date Related Diagnosis Body Site None Social History Social History Type Response Smoking Status Never smoker entered on: 06/15/16 Assessment and Plan Extracted from: Title: Ambulatory Patient Education Author: Deshawn Almonte MD Date: 08/28/17 No follow up information was provided.
--- OUTSIDE RECORDS SUMMARY | 2018-06-11 02:15 | External Medical Summary | Continuity of Care Document ---
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 Provider: Health PA, , unsp, 8 700 Bety Acuna PO Box unsp trimesterLess Medical K, 700 1522, than 8 weeks [facility] Tatyana, gestation of Dr, [facility] Dr SANTOS, 120, Vinayak 120, , Ashish Hinojosa, TOM SANTOS, tel:[phone]. , [place]. tel: tel: [phone] Ottoniel Hinojosa early OB Encntr for suprvsn Dec-2 Acuna Referring In Womens (chief of normal Bety. Provider: Health PEDRO LUIS, complaint) , unsp, 7 700 Bety [place] PO Box unsp trimester Medical , 700 1522, [place] [address], [facility] Dr SANTOS, 120, Vinayak 120, , Ashish Hinojosa, TOM SANTOS, tel:[phone]. , [place]. 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 Provider: Peña CLOUD, (routine) w/o abn 7 700 Bety [place] PO Box findingsEncounter [facility], 700 1522, for oth general [facility] Tatyana, cnsdenita and advice on , [facility] Dr SANTOS, procreation 120, Vinayak 120, , Ashish Hinojosa, TOM SANTOS, tel:[phone]. , [place]. 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 Provider: Health PEDRO LUIS, (routine) w/o abn 6 700 Bety [place] PO Box findingsPap Smear Medical , 700 1522, Screening, [place] Roselyn Joe CervixEncchelsey Montgomery, [facility] Dr SANTOS, for surveillance 120, Vinayak 120, , of contraceptive Ashish Hinojosa, pills TOM SANTOS, tel:[phone]. , [place]. tel: tel: [phone] Ottoniel Hinojosa Acuna In Womens 5-200 Bety. PK Clean [place], 8 700 PO [facility] [address], [place] Dr Tatyana, [facility], 120, [id number], [place], tel:[phone] , [place]. tel: [phone] Family History Family Member Diagnosis Age At [...] older Payers Payer name Insurance type Covered alliance party ID Authorization(s) [facility] CI [id number] [facility] [id number] [facility] CI [id number] Social History Type Description Quantity Date Captured Alcohol Use Details Caffeine Use Details Unknown Tobacco Use Status Never smoked tobacco Smoking Status Never smoker Non-Smoking Tobacco Use : No Details Available : No Details Available Details Vital Signs Date / Height Weight BMI Pulse Blood Temperature Respiratory Body Head BMI Time: Rate Pressure Rate Surface Circumference percentile Area 73.25 260.70 34.1 87 143/85 -2017 in lbs 6 /min mm[Hg] 3:59 kg/m [...]
--- OUTSIDE RECORDS SUMMARY | 2018-06-11 02:16 | External Medical Summary | Continuity of Care Document ---
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) w/o abn findings Pap Smear Screening, Cervix Encounter for surveillance of contraceptive pills Encntr for suprvsn of normal , unsp, unsp trimester Chronic sinusitis, unspecified - Encntr for suprvsn of normal first - preg, first trimester 12 weeks gestation of - 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 (general) (routine) w/o abn findings Encounter for oth general cnsl and advice on procreation Encntr for suprvsn of normal , unsp, unsp trimester Less than 8 weeks gestation of - Initiation of Oral Contraceptives - Active Procedures Procedure Date 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 Provider: Peña CLOUD, for suprvsn of 8 700 Bety [place] PO Box normal first preg, Medical , 700 1522, first [id number] [facility], weeks gestation of , [facility] Dr SANTOS, 120, Vinayak 120, [id number], Ashish [place], TOM, [place], tel: [phone]. , [place]. tel: tel: [phone] Ottoniel [place] Encntr for suprvsn Feb-0 Acuna Referring In Womens of normal first 5-201 Bety. Provider: Peña CLOUD preg, first 8 700 Bety Acuan PO Box [id number] weeks Medical , 700 1522, gestation of [facility] Tatyana, , [facility] Dr SANTOS, 120, Vinayak 120, , Ashish Hinojosa, TOM, TOM, tel: [phone]. , [place]. tel: tel: [phone] Ottoniel [place] Encntr for suprvsn Oct- Acuna Referring In Womens of normal 5-201 Bety. Provider: Peña CLOUD, , unsp, 8 700 Bety [place] PO Box unsp trimesterLess Medical , 700 1522, than [address] [facility], gestation of Dr, [facility] Dr SANTOS, 120, Vinayak 120, [id number], Ashish H[place]josa, TOM, TOM, tel: [phone]. , [place]. tel: tel: [phone] Ottoniel [place] Encntr for suprvsn Dec-2 Acuna Referring In Womens of normal 7-201 Bety. Provider: Peña CLOUD, , unsp, 7 700 Bety [place] PO Box unsp trimester Medical , 700 1522, [place] [address], [facility] Dr SNATOS, 120, Vinayak 120, , Ashish Hinojosa, TOM, TOM, tel:[phone]. , [place]. 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 Provider: Health PEDRO LUIS, (routine) w/o abn 7 700 Bety [place] PO Box findingsEncounter Medical , 700 1522, for oth general [place] [facility] Tatyana, cnsdenita and advice on , [facility] Dr SANTOS, procreation 120, Vinayak 120, , Ashish Hinojosa, TOM, TOM, tel:[phone]. , [place]. 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 Provider: Peña CLOUD, (routine) w/o abn 6 700 Bety [place] PO Box findingsPap Smear Medical , 700 1522, Screening, [place] Roselyn Joe CervixJessy Montgomery, [facility] Dr SANTOS, for surveillance 120, Vinayak 120, , of contraceptive Ashish Hinojosa, pills TOM, TOM, tel:[phone]. , [place]. tel: tel: [phone] Ottoniel Hinojosa Nov- Acuna In Womens 5-200 Bety. Health PEDRO LUIS, 8 700 PO Box Medical 1522, [place] Dr Tatyana, [facility] TOM, 120, , Ashish, TOM, tel:[phone] , [place]. tel: [phone] Family History Family Member Diagnosis Age At [...] name Insurance type Covered democrat ID Authorization(s) [facility] [id number] BCSHANIA LUNA [id number] [facility] [id number] Social History Type Description Quantity Date Captured Alcohol Use Details No Caffeine Use Details No Tobacco Use Status Never smoked tobacco Smoking Status Never smoker Vital Signs Date / Height Weight BMI Pulse Blood Temperature Respiratory Body Head BMI Time: Rate Pressure Rate Surface Circumference percentile Area 254.60 33.3 132/84 -2018 lbs 1 mm[Hg] 3:32 kg/m PM eter (2) Chief Complaint And Reason For Visit Unknown Chief Complaint And Reason For Visit Reason For Referral Reason For Referral Unknown Plan Of Care Date Type Action Status Goal Lifestyle education regarding diet completed Goal Lifestyle education regarding diet completed Appointment Sushila LeungED Date Type Problem Goal Intervention Status Start [...]
--- OUTSIDE RECORDS SUMMARY | 2018-06-11 02:16 | External Medical Summary | Continuity of Care Document ---
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 , [place]. tel: tel: [phone] Ottoniel Hinojosa Barron-0 Acuna In Womens 2-201 Bety. Health PEDRO LUIS, 8 700 PO Box Medical [address], [place] [address] Tatyana, [facility] TOM, 120, [id number], [place], tel:[phone] , [place]. tel: [phone] Associates Ashish Hughesr for suprvsn Dec-2 Acuna Referring In Womens of normal 7-201 Bety. Provider: Peña CLOUD, , unsp, 7 700 Bety Acuna PO Box unsp trimester [facility], 700 1522, [place] [address], [facility] Dr SANTOS, 120, Vinayak 120, , Ashish [place], TOM, TOM, tel: [phone]. , [place]. tel: tel: [phone] Ottoniel Wu for pantographer Oct-0 Acuna Referring In Womens exam (general) 9-201 Bety. Provider: Health PEDRO LUIS, (routine) w/o abn 7 700 Bety [place] PO Box findingsEncounter [facility], 700 1522, for oth general [facility] Tatyana, fredy and advice on , [facility] Dr SANTOS, procreation 120, Vinayak 120, , Ashish [place], TOM, TOM, tel: [phone]. , [place]. tel: tel: [phone] Associates Ashish Braunntr for pantographer Aug-0 Acuna Referring In Womens exam (general) 5-201 Bety. Provider: Health PEDRO LUIS, (routine) w/o abn 6 700 Bety [place] PO Box findingsPap Smear [facility], 700 1522, Screening, [facility] Tatyana CervixEncchelsey Montgomery, [facility] Dr SANTOS, for surveillance 120, Vinayak 120, [id number], of contraceptive Ashish [place], pills [place], tel: [phone]. , . tel: tel: [phone] Associates [place]una In Womens 5-200 Bety. Health [place], 8 700 PO [facility] 15[address], [place] [address] Tatyana, Vinayak [place], 120, [id number], [facility], tel: [phone] , . tel: [phone] Family History Family Member Diagnosis Age At [...] name Insurance type Covered libertarian ID Authorization(s) [facility] CI [id number] [facility] [id number] [facility] CI [id number] Social History Type Description Quantity Date Captured Unknown Vital Signs Date / Height Weight BMI Pulse Blood Temperature Respiratory Body Head BMI Time: Rate Pressure Rate Surface Circumference percentile Area Unknown Chief Complaint And Reason For Visit Unknown [...]
--- OUTSIDE RECORDS SUMMARY | 2018-06-11 02:16 | External Medical Summary | Continuity of Care Document ---
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 exam (general) (routine) w/o abn findings Pap [...] tri, unsp 19 weeks gestation of - Encntr for disc pad grinder exam (general) (routine) w/o abn findings Encounter [...] Oral Contraceptives - Active Procedures Procedure Date Ultrasnd preg uterus, flwup/repeat Results Test Name Date and Time Measure Units Reference Range Abnormal Flag Comments Unknown Advance Directives Directive Yes / No Effective Date File Name Unknown Encounters Encounter Practice Location Reason(s) Diagnoses Date Provider Care Team Description For Visit Members Ottoniel Hughesr for Mar-2 Acuna Referring In Womens suprvsn of normal 8-201 Bety. Provider: Health PA, first preg, third 8 700 Bety Acuna PO Box [id number] weeks Medical K, 700 1522, gestation of [facility] [place], , [facility] [address] SANTOS, 120, Vinayak 120, [id number], Ashish [place], TOM, TOM, tel:[phone] , [place]. tel: tel: [phone] Ottoniel Wu for Joaquín-1 Acuna Referring In Womens suprvsn of normal 4-201 Bety. Provider: Health PEDRO LUIS, first preg, third 8 700 Bety [place] PO Box [id number] weeks Medical , 700 1522, gestation of [facility] [place], , [facility] [address] SANTOS, 120, Vinayak 120, [id number], Ashish [place], [place] TOM SANTOS, tel: [phone]. , [place]. tel: tel: [phone] Ottoniel [place] Maternal care for Joaquín-1 Acuna Referring In Womens Ultrasound excess 4-201 Bety. Provider: Health PEDRO LUIS, growth, third 8 700 Bety Ac[place] PO Box trimester, [email or web address] Medical , 700 1522, weeks gestation [facility], of , [facility] [address] SANTOS, 120, Vinayak 120, [id number], Ashish [place], TOM SANTOS, tel:[phone]. , [place]. tel: tel: [phone] Ottoniel Hinojosa Maternal care for May-2 Acuna Referring In Womens excess 5-201 Bety. Provider: Peña CLOUD, growth, second 8 700 Bety Acuna PO Box tri, unspEncntr Medical , 700 1522, for suprvsn of [facility], normal first , [facility] Dr SANTOS, preg, second 120, Vinayak 120, , [email or web address] weeks Ashish Hinojosa, gestation of TOM SANTOS, tel: [phone]. , [place]. tel: tel: [phone] Ottoniel Hinojosa Encntodilon for May-0 Acuna Referring In Womens suprvsn of normal 3-201 Bety. Provider: Peña CLOUD, first preg, 8 700 Bety Acuna PO Box second Medical K, 700 1522, [email or web address] weeks [facility] [place], gestation of , [facility] Dr SANTOS, 120, Vinayak 120, , Ashish Hinojosa, TOM SANTOS, tel: [phone]. , [place]. tel: tel: [phone] Ottoniel [place] Encntr for Apr-0 Acuan Referring In Womens suprvsn of normal 5-201 Bety. Provider: Peña CLOUD, first preg, 8 700 Bety Acuna PO Box [facility] , 700 1522, [email or web address] [facility] of , [facility] Dr SANTOS, 120, Vinayak 120, [id number], Ashish Hinojosa, TOM, TOM, tel: [phone]. , [place]. tel: tel: [phone] Ottoniel Hinojosa Matern care for Apr-0 Acuna Referring In Womens Ultrasound oth or susp poor 5-201 Bety. Provider: Peña CLOUD, fetl grth, 2nd 8 700 Bety Ac[place] PO Box tri, [email or web address] weeks [facility], 700 1522, gestation of [facility], , [facility] [address] SANTOS, 120, Vinayak 120, , Ashish Hinojosa, TOM, TOM, tel: [phone]. , [place]. tel: tel: [phone] Ottoniel [place] Encntr for Mar-0 Acuna Referring In Womens suprvsn of normal 5-201 Bety. Provider: Peña CLOUD, first preg, 8 700 Bety Acuna PO Box [facility], 700 1522, weeks [facility], gestation of , [facility] Dr SANTOS, 120, Vinayak 120, , Ashish [place], TOM, TOM, tel: [phone]. , [place]. tel: tel: [phone] Ottoniel [place] Chronic Feb-1 Acuna Referring In Womens sinusitis, 9-201 Bety. Provider: Peña CLOUD, vitaliyifiedEncntr 8 700 Bety Ac[place] PO Box for suprvsn of Medical , 700 1522, normal first [facility], preg, first , [facility] Dr SANTOS, [email or web address] weeks 120, Vinayak 120, , gestation of Ashish H[place]osa, TOM, TOM, tel: [phone]. , [place]. tel: tel: [phone] Ottoniel [place] Encntr for Nov-0 Acuna Referring In Womens suprvsn of normal 5-201 Bety. Provider: Peña CLOUD, first preg, first 8 700 Bety [place] PO Box [id number] weeks [facility], 700 1522, gestation of [facility] [place], , [facility] [address] SANTOS, 120, Vinayak 120, , Ashish [place], TOM, TOM, tel: [phone]. , [place]. tel: tel: [phone] Ottoniel [place] Encntr for Oct- Acuna Referring In Womens suprvsn of normal 5-201 Bety. Provider: Peña CLOUD, , unsp, 8 700 Bety [place] [facility], trimesterLess [facility] [place], than [address], [facility] [address] SANTOS, gestation of 120, Vinayak 120, , Ashish [place], TOM, TOM, tel: [phone]. , [place]. tel: tel: [phone] Ottoniel [place] Encntr for Dec-2 Acuna Referring In Womens suprvsn of normal 7-201 Bety. Provider: Peña CLOUD, , unsp, 7 700 Bety [place] PO Box unsp [facility], 700 1522, [place] [address], [facility] [address] SANTOS, 120, Vinayak 120, [id number], Ashish [place], [place] TOM, TOM, tel: [phone]. , [place]. 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 Provider: Peña CLOUD, (routine) w/o abn 7 700 Bety [place] [facility] 700 1522, for [facility] [place], cnsdenita and advice , [facility] [address] SANTOS, on procreation 120, Vinayak 120, , Ashish [place], [place], [place], tel: [phone]. , [place]. tel: tel: [phone] Ottoniel [place] Encntr for disc pad grinder Acuna Referring In Womens exam (general) 5-201 Bety. Provider: Health PEDRO LUIS, (routine) w/o abn 6 700 Bety [place] PO Box findingsPap Smear Medical , 700 1522, Screening, [facility] [place], CervixEncounter , [facility] Dr SANTOS, for surveillance 120, Vinayak 120, , of contraceptive Ashish Hinojosa, pills TOM, TOM, tel: [phone]. , [place]. tel: tel: [phone] Ottoniel Hinojosa Nov- Acuna In Womens 5-200 Bety. Health PEDRO LUIS, 8 700 PO Box Medical 1522, [address] Tatyana, [facility], 120, , [facility] [place], tel: [phone] , [place]. tel: [phone] Family History Family Member Diagnosis Age At [...] older Payers Payer name Insurance type Covered republican ID Authorization(s) [facility] CI [id number] [facility] TOM [id number] [facility] CI [id number] [facility] CI [id number] Social History Type Description Quantity Date Captured [...] Sushila Leung BOOKED Future Order: Radiology Order Ultrasound OB Follow-up ([id number]) Ordered Future Order: Radiology Order Complete OB Ultrasound > 14 Weeks Ordered ([id number]) Date Type Problem Goal Intervention Status Start [...]
--- OUTSIDE RECORDS SUMMARY | 2018-06-11 02:16 | External Medical Summary | Continuity of Care Document ---
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 (general) (routine) w/o abn findings Pap Smear Screening, Cervix Encounter for surveillance of contraceptive pills Encntr for suprvsn of normal , unsp, unsp trimester Encntr for suprvsn of normal first - preg, second trimester 14 weeks gestation of - Chronic sinusitis, unspecified - Encntr for suprvsn of normal first - preg, first trimester 12 weeks gestation of - Matern care for oth or susp poor fetl - grth, 2nd tri, unsp 19 weeks gestation of - 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 for building rigger exam (general) (routine) w/o abn findings Encounter for oth general cnsl and advice on procreation Encntr for suprvsn of normal first - preg, first trimester 10 weeks gestation of - Encntr for suprvsn of normal , unsp, unsp trimester Less than 8 weeks gestation of - Initiation of Oral Contraceptives - Active Procedures Procedure Date OB Visit 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 Provider: Peña CLOUD, first preg, 8 700 Bety [place] PO Box second Medical , 700 1522, [email or web address] weeks [facility], gestation of , [facility] Dr SANTOS, 120, Vinayak 120, , Ashish Hinojosa, TOM, TOM, tel:[phone] , [place]. tel: tel: [phone] Ottoniel Hinojosa Matern care for Apr-0 Acuna Referring In Womens Ultrasound oth or susp poor 5-201 Bety. Provider: Peña CLOUD, fetl gr, 2nd 8 700 Bety [place] PO Box tri, [email or web address] weeks Medical , 700 1522, gestation of [facility], , [facility] Dr SANTOS, 120, Vinayak 120, [id number], Ashish Hinojosa, TOM, TOM, tel:[phone] , [place]. tel: tel: [phone] Ottoniel Hinojosa Encntr for Mar-0 [place] Referring In Womens suprvsn of normal 5-201 Bety. Provider: Peña CLOUD, first preg, 8 700 Bety [place] PO Box second Medical K, 700 1522, weeks [facility], gestation of , [facility] Dr SANTOS, 120, Vinayak 120, , Ashish Hinojosa, TOM SANTOS, tel: [phone]. , [place]. tel: tel: [phone] Ottoniel Hinojosa Chronic Feb-1 [place] Referring In Womens sinusitis, 9-201 Bety. Provider: Peña CLOUD, unspecifiedEncntr 8 700 Bety [place] PO Box for suprvsn of Medical K, 700 1522, normal first [place] [facility], preg, first , [facility] Dr SANTOS, [email or web address] weeks 120, Vinayak 120, , gestation of Ashish Hinojosa, [place] TOM, [place], tel: [phone]. , [place]. tel: tel: [phone] Ottoniel Hinojosa Encntr for Feb-0 Acuna Referring In Womens suprvsn of normal 5-201 Bety. Provider: Peña CLOUD, first preg, first 8 700 Bety [place] PO Box [email or web address] weeks Medical , 700 1522, gestation of [facility] Tatyana, , [facility] Dr SANTOS, 120, Vinayak 120, , Hinojosa Hinojosa, TOM, [place], tel: [phone]. , [place]. tel: tel: [phone] Ottoniel Hinojosa Encntr for Barron- Acuna Referring In Womens suprvsn of normal 5-201 Bety. Provider: Peña CLOUD, , unsp, 8 700 Bety [place] PO Box unsp Medical K, 700 1522, trimesterLess [place] [facility] Joe, than 8 weeks , [facility] Dr SANTOS, gestation of 120, Vinayak 120, , Ashish Hinojosa, TOM, [place], tel: [phone]. , [place]. tel: tel: [phone] Ottoniel Hinojosa Encntr for Dec-2 [place] Referring In Womens suprvsn of normal 7-201 Bety. Provider: Peña CLOUD, , unsp, 7 700 Bety [place] PO Box unsp trimester Medical , 700 1522, [facility] [address] [address], [facility] Dr SANTOS, 120, Vinayak 120, , Ashish Hinojosa, TOM, TOM, tel: [phone]. , [place]. 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 Provider: Health PEDRO LUIS, (routine) w/o abn 7 700 Bety [place] PO Box findingsEncounter Medical , 700 1522, for oth general [place] fredy Hagan and advice , [facility] Dr SANTOS, on procreation 120, Vinayak 120, , Ashish Hinojosa, TOM, [place], tel: [phone]. , [place]. tel: tel: [phone] Ottoniel Hinojosa Encntr for building rigger Aug-0 [place] Referring In Womens exam (general) 5-201 Bety. Provider: Health PEDRO LUIS, (routine) w/o abn 6 700 Bety [place] PO Box findingsPap Smear Medical , 700 1522, Screening, [place] [facility] Joe CervixJessy Montgomery, [facility] Dr SANTOS, for surveillance 120, Vinayak 120, [id number], of contraceptive Ashish Hinojosa, pills TOM, TOM, tel: [phone]. , [place]. tel: tel: [phone] Ottoniel Hinojosa Nov- Acuna In Womens 5-200 Bety. Health PEDRO LUIS, 8 700 PO [address] Medical [address], [place] Dr Tatyana, [email or web address] TOM, 120, , Hinojosa, TOM, tel: [phone] , [place]. tel: [phone] Family History Family Member Diagnosis Age At [...] name Insurance type Covered democrat ID Authorization(s) [facility] [id number] SHANIA LUNA [id number] [facility] [id number] Social History Type Description Quantity Date Captured Alcohol Use Details No Caffeine Use Details Unknown Tobacco Use Status Unknown Smoking Status Never smoker Vital Signs Date / Height Weight BMI Pulse Blood Temperature Respiratory Body Head BMI Time: Rate Pressure Rate Surface Circumference percentile Area 263.00 34.4 141/87 -2018 lbs 1 mm[Hg] 4:16 kg/m PM eter (2) Chief Complaint And Reason For Visit Unknown Chief Complaint And Reason For Visit Reason For Referral Reason For Referral Unknown Plan Of Care Date Type Action Status Goal Lifestyle education regarding completed diet Goal Lifestyle education regarding completed diet Appointment Sushila Leung BOOKED Future Order: Radiology Order Complete OB Ultrasound > 14 Weeks Ordered ([id number]) Date Type Problem Goal Intervention Status Start [...]
--- OUTSIDE RECORDS SUMMARY | 2018-06-11 02:16 | External Medical Summary | Continuity of Care Document ---
:1985 Author Organization [facility] Address [address] [place], [place] [phone] Phone Care Team Providers Name Role Phone [...] 29 weeks gestation of - Encntr for oncology consultant exam (general) (routine) w/o abn findings Pap [...] 29 weeks gestation of - Encntr for oncology consultant exam (general) (routine) w/o abn findings Encounter [...] third 8 700 Bety [place] PO Box [email or web address] weeks Medical K, 700 1522, gestation of [facility] [place], Dr, [facility] Dr SANTOS, 120, Vinayak 120, [id number], Ashish Hinojosa, TOM SANTOS, tel:[phone] , [place]. tel: tel: [phone] Ottoniel Hughesr for Mar-1 Ac[place] Referring In Womens suprvsn of normal 4-201 Bety. Provider: Health PEDRO LUIS, first preg, third 8 700 Bety [place] PO Box [email or web address] weeks Medical , 700 1522, gestation of [facility], , [facility] Dr SANTOS, 120, Vinayak 120, [id number], Ashish Hinojosa, TOM, TOM, tel: [phone]. , [place]. tel: tel: [phone] Ottoniel Hinojosa Maternal care for Joaquín-1 Acuna Referring In Womens Ultrasound excess 4-201 Bety. Provider: Health PEDRO LUIS, growth, third 8 700 Bety [place] PO Box trimester, [email or web address] Medical , 700 1522, weeks gestation [facility], of , [facility] Dr SANTOS, 120, Vinayak 120, , Ashish Hinojosa, TOM SANTOS, tel: [phone]. , [place]. tel: tel: [phone] Ottoniel Hinojosa Maternal care for May-2 Ac[place] Referring In Womens excess 5-201 Bety. Provider: Peña CLOUD, growth, second 8 700 Bety [place] PO Box tri, unspEncntr Medical , 700 1522, for suprvsn of [facility], normal first Dr [facility] [address] SANTOS, preg, second 120, Vinayak 120, , [email or web address] weeks Ashish Hinojosa, gestation of TOM SANTOS, tel: [phone]. , [place]. tel: tel: [phone] Ottoniel Hinojosa Encntr for May-0 Acuna Referring In Womens suprvsn of normal 3-201 Bety. Provider: Health PEDRO LUIS, first preg, 8 700 Bety [place] PO Box second Medical , 700 1522, weeks [facility], gestation of , [facility] Dr SANTOS, 120, Vinayak 120, , Ashish Hinojosa, TOM SANTOS, tel: [phone]. , [place]. tel: tel: [phone] Ottoniel Hinojosa Encntr for Apr-0 Acuna Referring In Womens suprvsn of normal 5-201 Bety. Provider: Peña CLOUD, first preg, [address] [facility], 700 1522, [email or web address] weeks [facility], gestation of Dr, [facility] Dr SANTOS, 120, Vinayak 120, [id number], Ashish Hinojosa, TOM, [place], tel: [phone]. , [place]. tel: tel: [phone] Ottoniel Hinojosa Matern care for Apr-0 Acuna Referring In Womens Ultrasound oth or susp poor 5-201 Bety. Provider: Peña CLOUD, fetl grth, 2nd 8 700 Bety [place] PO Box tri, [email or web address] weeks [facility], 700 1522, gestation of [facility], , [facility] Dr SANTOS, 120, Vinayak 120, , Ashish Hinojosa, TOM, [place], tel: [phone]. , [place]. tel: tel: [phone] Ottoniel Hinojosa Encntr for Mar-0 Acuna Referring In Womens suprvsn of normal 5-201 Bety. Provider: Peña CLOUD, first preg, [address] [facility], 700 1522, [email or web address] weeks [facility], gestation of , [facility] Dr SANTOS, 120, Vinayak 120, , Ashish Hinojosa, TOM, [place], tel: [phone]. , [place]. tel: tel: [phone] Ottoniel Hinojosa Chronic Feb-1 Acuna Referring In Womens sinusitis, 9-201 Bety. Provider: Peña CLOUD, vitaliyifiedEncntr 8 700 Bety [place] PO Box for suprvsn of Medical K, 700 1522, normal first [facility], preg, first , [facility] Dr SANTOS, weeks 120, Vinayak 120, , gestation of Ashish Hinojosa, TOM, TOM, tel: [phone]. , [place]. tel: tel: [phone] Ottoniel Hinojosa Encntr for Nov-0 Acuna Referring In Womens suprvsn of normal 5-201 Bety. Provider: Peña CLOUD, first preg, first 8 700 Bety [place] PO Box [email or web address] weeks [facility], 700 1522, gestation of [facility] Tatyana, , [facility] Dr SANTOS, 120, Vinayak 120, , Ashish Hinojosa, TOM, [place], tel: [phone]. , [place]. tel: tel: [phone] Ottoniel Hinojosa Encntr for Oct- Acuna Referring In Womens suprvsn of normal 5-201 Bety. Provider: Peña CLOUD, , unsp, 8 700 Bety [place] PO Box unsp [facility], 700 1522, trimesterLess [facility] Tatyana, than 8 weeks , [facility] Dr SANTOS, gestation of 120, Vinayak 120, , Ashish Hinojosa, TOM, [place], tel: [phone]. , [place]. tel: tel: [phone] Ottoniel Hinojosa Encntr for Sep-2 Acuna Referring In Womens suprvsn of normal 7-201 Bety. Provider: Peña CLOUD, , unsp, 7 700 Bety [place] PO Box unsp trimester [facility], 700 1522, [place] [address], [facility] Dr SANTOS, 120, Vinayak 120, [id number], Ashish Hinojosa, TOM, TOM, tel: [phone]. , [place]. tel: tel: [phone] Ottoniel Hinojosa Encntr for oncology consultant Oct-0 Acuna Referring In Womens exam (general) 9-201 Bety. Provider: Peña CLOUD, (routine) w/o abn 7 700 Bety [place] [facility], for [facility] Tatyana, cnsdenita and advice , [facility] Dr SANTOS, on procreation 120, Vinayak 120, , Ashish Hinojosa, TOM, [place], tel: [phone]. , [place]. tel: tel: [phone] Ottoniel Hinojosa Encntr for oncology consultant Acuna Referring In Womens exam (general) 5-201 Bety. Provider: Health PEDRO LUIS, (routine) w/o abn 6 700 Bety [place] PO Box findingsPap Smear Medical , 700 1522, Screening, [place] [facility], CervixEncounter , [facility] Dr SANTOS, for surveillance 120, Vinayak 120, , of contraceptive Ashish Hinojosa, pills [place], [place], tel: [phone]. , [place]. tel: tel: [phone] Ottoniel Hinojosa Acuna In Womens 5-200 Bety. Health PEDRO LUIS, 8 700 PO Box Medical 1522, [place] Dr Tatyana, [facility] [place], 120, , [place], [place], tel: [phone] , [place]. tel: [phone] Family History Family Member Diagnosis Age At [...] Insurance type Covered constitution party ID Authorization(s) [facility] [place] [id number] [facility] [id number] [facility] CI [id number] [facility] CI [id number] Social History Type Description Quantity Date Captured Alcohol Use Details No Caffeine Use Details Unknown Tobacco Use Status Unknown Smoking Status Never smoker Vital Signs Date / Height Weight BMI Pulse Blood Temperature Respiratory Body Head BMI Time: Rate Pressure Rate Surface Circumference percentile Area 270.30 35.3 131/83 2018 lbs 7 mm[Hg] 10:21 kg/m AM eter (2) Chief Complaint And Reason For Visit Unknown Chief Complaint And Reason For Visit Reason For Referral Reason For Referral Unknown Plan Of Care Date Type Action Status Goal Lifestyle education regarding completed diet Goal Lifestyle education regarding completed diet Appointment Sushila Leung BOOKED Future Order: Radiology Order Complete OB Ultrasound > 14 Weeks Ordered ([id number]) Future Order: Radiology Order Ultrasound OB Follow-up ([id number]) Ordered Date Type Problem Goal Intervention Status [...]
--- OUTSIDE RECORDS SUMMARY | 2018-06-11 02:16 | External Medical Summary | Continuity of Care Document ---
:1985 Author Organization [facility] Address [address] [place], [place] [phone] Phone Care Team Providers Name Role Phone [...] Effective Dates (start - stop) Clinical Status Matern care for oth or susp poor fetl - grth, 2nd tri, unsp 19 weeks gestation of - Encntr for medical management specialist exam (general) (routine) w/o abn findings Pap Smear Screening, Cervix Encounter for surveillance of contraceptive pills Encntr for suprvsn of normal , unsp, unsp trimester Encntr for suprvsn of normal first - preg, second trimester 14 weeks gestation of - Chronic sinusitis, unspecified - Encntr for suprvsn of normal first - preg, first trimester 12 weeks gestation of - Encntr for medical management specialist exam (general) (routine) w/o abn findings Encounter [...] Oral Contraceptives - Active Procedures Procedure Date Ultrasound exam of preg uterus, complete Results Test Name Date and Time Measure [...] PO Box second Medical K, 700 1522, [email or web address] weeks [facility], gestation of , [facility] Dr SANTOS, 120, Vinayak 120, , Ashish Hinojosa, TOM, TOM, tel:[phone]. , [place]. tel: tel: [phone] Ottoniel Hinojosa [facility] care for Apr-0 Acuna Referring In Womens Ultrasound oth or susp poor 5-201 Bety. Provider: Peña CLOUD, fetl gr, 2nd 8 700 Bety [place] PO Box tri, [email or web address] weeks Medical , 700 1522, gestation of [facility], , [facility] Dr SANTOS, 120, Vinayak 120, [id number], Ashish Hinojosa, TOM, TOM, tel:[phone]. , [place]. tel: tel: [phone] Ottoniel Hinojosa Encntr for Mar-0 Acuna Referring In Womens suprvsn of normal 5-201 Bety. Provider: Peña CLOUD, first preg, 8 700 Bety [place] PO Box second Medical K, 700 1522, [id number] weeks [facility], gestation of , [facility] Dr SANTOS, 120, Vinayak 120, , Ashish Hinojosa, TOM SANTOS, tel: [phone]. , [place]. tel: tel: [phone] Ottoniel Hinojosa Chronic Feb-1 Acuna Referring In Womens sinusitis, 9-201 Bety. Provider: Peña CLOUD, unspecifiedEncntr 8 700 Bety [place] PO Box for suprvsn of Medical K, 700 1522, normal first [place] Roselyn Joe, preg, first , [facility] Dr SANTOS, [email or web address] weeks 120, Vinayak 120, , gestation of Ashish Hinojosa, [place] T[place], [place], tel: [phone]. , [place]. tel: tel: [phone] Ottoniel Hinojosa Encntr for Feb-0 Acuna Referring In Womens suprvsn of normal 5-201 Bety. Provider: Peña CLOUD, first preg, first 8 700 Bety [place] PO Box [id number] weeks Medical , 700 1522, gestation of [facility] Tatyana, , [facility] Dr SANTOS, 120, Vinayak 120, , [place] Hinojosa, T[place], [place], tel: [phone]. , [place]. tel: tel: [phone] Ottoniel Hinojosa Encntr for Barron- Acuna Referring In Womens suprvsn of normal 5-201 Bety. Provider: Peña CLOUD, , unsp, 8 700 Bety [place] PO Box unsp Medical K, 700 1522, trimesterLess [place] Roselyn Joe, than 8 weeks , [facility] Dr SANTOS, gestation of 120, Vinayak 120, , Ashish Hinojosa, TOM, [place], tel: [phone]. , [place]. tel: tel: [phone] Ottoniel Hinojosa Encntr for Dec-2 Acuna Referring In Womens suprvsn of normal 7-201 Bety. Provider: Peña CLOUD, , unsp, 7 700 Bety [place] PO Box unsp trimester Medical , 700 1522, [facility] [address], [facility] Dr SANTOS, 120, Vinayak 120, , Ashish Hinojosa, TOM, TOM, tel: [phone]. , [place]. tel: tel: [phone] Ottoniel Hinojosa Encntr for medical management specialist Oct-0 Acuna Referring In Womens exam (general) 9-201 Bety. Provider: Health PEDRO LUIS, (routine) w/o abn 7 700 Bety [place] PO Box findingsEncounter Medical , 700 1522, for oth general [place] fredy Hagan and advice , [facility] Dr SANTOS, on procreation 120, Vinayak 120, , Ashish Hinojosa, TOM, [place], tel: [phone]. , [place]. tel: tel: [phone] Ottoniel Hinojosa Encntr for medical management specialist Aug-0 Acuna Referring In Womens exam (general) 5-201 Bety. Provider: Health PEDRO LUIS, (routine) w/o abn 6 700 Bety [place] PO Box findingsPap Smear Medical , 700 1522, Screening, [place] Roselyn Joe CervixJessy Montgomery, [facility] Dr SANTOS, for surveillance 120, Vinayak 120, [id number], of contraceptive Ashish Hinojosa, pills TOM, TOM, tel: [phone]. , [place]. tel: tel: [phone] Ottoniel Hinojosa Nov- Acuna In Womens 5-200 Bety. Health PEDRO LUIS, 8 700 PO Box Medical [address], [place] Dr Tatyana, [facility] TOM, 120, , Hinojosa, TOM, tel: [phone] , [place]. tel: [phone] Family History Family Member Diagnosis Age At [...] name Insurance type Covered democrat ID Authorization(s) [facility] [id number] [facility] TOM [id number] [facility] [id number] Social History Type Description Quantity Date Captured [...] Complete OB Ultrasound > 14 Weeks Ordered ([id number]) Date Type Problem Goal Intervention Status Start [...]
[2018-06-11] MEDS ORDERED: METHYLERGONOVINE 0.2 MG/ML INJECTION IM PRN (02:36)
[2018-06-11] MEDS ORDERED: CALCIUM CARBONATE Chewable 500mg TABLET PO PRN (02:36)
[2018-06-11] MEDS ORDERED: ACETAMINOPHEN 500 MG TABLET PO PRN (02:36)
[2018-06-11] MEDS ORDERED: SALINE FLUSH 10ml SYRINGE IV PRN (02:36)
[2018-06-11] MEDS ORDERED: CARBOPROST 250 MCG/ML INJECTION IM PRN (02:36)
[2018-06-11] MEDS ORDERED: LIDOCAINE 1% (10mg/ml) 2mL INJ PF SDV ID PRN (02:36)
[2018-06-11] MEDS ORDERED: MAG-AL + SIM ORAL LIQUID 30ml PO PRN (02:36)
[2018-06-11] MEDS: LR 1,000 ML IV PRN ×4 (02:45→15:29)
[2018-06-11 03:11] VITALS: BMI 30.9
[2018-06-11] MEDS: D5LR 1,000 ML IV PRN ×2 (05:30→15:33)
[2018-06-11] MEDS ORDERED: DiphenhydrAMINE 50 MG/ML INJECTION IVP PRN (12:09)
[2018-06-11] MEDS ORDERED: ROPIVACAINE 1% 10MG/ML INJ 200 MG, SUFentanil 50 MCG in NS 100 ML EPI PRN (12:09)
[2018-06-11] MEDS ORDERED: NALOXONE 0.4 MG/ML INJECTION IVP PRN (12:09)
[2018-06-11] MEDS ORDERED: ONDANSETRON 4 MG/2 ML INJECTION IVP PRN (12:09)
--- NOTE | 2018-06-11 12:14 | Anesthesia Preoperative Report ---
Anesthesia Epidural/Spinal Rec - Date and Time Date: 06/11/18 Procedure: Labor Epidural Plan: Epidural - Vital Signs Vital Signs: Temperature 98.7 F 06/11/18 03:32 Pulse Rate 74 06/11/18 03:32 Respiratory Rate 18 06/11/18 03:32 Blood Pressure 128/80 06/11/18 03:32 Pulse Oximetry 98 06/11/18 03:32 /Para: P:0 - Medictaions & Allergies Inpatient Medications: Current Medications Acetaminophen (Tylenol) 500 - 1,000 mg PO Q4H PRN PRN Reason: Pain Al Hydroxide/Mg Hydroxide (Maalox Plus) 30 ml PO Q3H PRN PRN Reason: Indigestion Calcium Carbonate (Tums) 500 - 1,000 mg PO Q2H PRN PRN Reason: Indigestion Carboprost Tromethamine (Hemabate) 250 mcg IM O PRN PRN Reason: .Downtime Diphenhydramine HCl (Benadryl) 25 - 50 mg IVP Q3H PRN PRN Reason: Itching Lactated Ringer's (Lactated Ringers) 1,000 mls @ 999 mls/hr IV .Q1H1M PRN Last Admin: 06/11/18 04:00 Dose: 999 mls/hr Ropivacaine 200 mg/ Sufentanil Citrate 50 mcg/ Sodium Chloride 121 mls @ 0 mls/ hr EPI PRN PRN; Protocol Lidocaine HCl (Xylocaine-Mpf 1% Vial) 0.2 mg ID O PRN PRN Reason: IV Start Methylergonovine Maleate (Methergine) 0.2 mg IM O PRN Misoprostol (Cytotec) 800 mcg W[place] ONCE PRN Naloxone HCl (Narcan) 0.1 mg IVP Q2M PRN PRN Reason: Respiratory distress Ondansetron HCl (Zofran) 4 mg IVP Q6H PRN PRN Reason: Nausea &/or vomiting Sodium Chloride (Iv Flush) 10 - 80 ml IV PRN PRN PRN Reason: Flushing Allergies/Adverse Reactions: Allergies Allergy/AdvReac Type Severity Reaction Status Date / Time Penicillins Allergy Unknown Verified 06/11/18 04:00 - Home Medications Home Medications: Home Medications Medication Instructions Recorded Confirmed Type Acetaminophen [Acetaminophen Extra 500 mg PO Q4H PRN 04/22/17 05/09/18 History Strength] Beclomethasone Dipropionate [Qnasl] 1 puff NS DAILY PRN 04/22/17 05/09/18 History Cetirizine HCl [Zyrtec] 10 mg PO DAILY 04/22/17 05/09/18 History Meclizine [Antivert] 25 mg PO Q6HPRN PRN #30 tab 04/22/17 05/09/18 Rx Montelukast [Singulair] 10 mg PO HS 04/22/17 05/09/18 History Budesonide Nasal Wheeler [Rhinocort 8.6 g ZACHARY DAILY 05/09/18 05/09/18 History Aqua Nasal Wheeler] Simethicone [Gas Relief] 125 mg PO DAILY 05/09/18 05/09/18 History - Medical History Respiratory: Reports: Asthma Gastrointestional: Reports: Gastroesophageal Reflux Disease Other History: Reports: Now - Surgical History Anesthesia Reactions: None Hx Family Anesthesia Reaction: No History of Motion Sickness: No - Social History Smoking Status: Never smoker Second Hand Exposure: No Substance Use Type: does not use - Pertinent Findings Lab Data: CBC and BMP 06/11/18 02:45 - Physical Exam Respiratory Exam: lungs clear, bilateral breath sounds equal Cardiovascular Exam: regular rate and rhythm - Airway Assessment Mallampati Score: II TMD: 3 Fingerbreadths Neck Extension: good Overall Assessment: may be difficult intubation - ASA ASA Score: 2 - Discussion Discussion: Discussed risks/options/alternatives of anesthesia and questions answered. Patient consents. Nursing pain assessment noted. Anesthesia Discussion: spouse, parent Attestation Statement: Prior to the delivery of any anesthetic medication, I examined the patient, developed the plan, obtained the patient's consent and discussed the risk and benefits of the procedure with the patient/guardian.
[2018-06-11] MEDS ORDERED: OXYTOCIN DRIP 30 UNIT/500 ML ML IV PRN (15:31)
[2018-06-11] MEDS ORDERED: CEFAZOLIN PREMIX (MC ONLY) 2 GM/50 ML BAG IV ONE (20:23)
[2018-06-11] MEDS ORDERED: TRANEXAMIC ACID 1,000 MG in NS 100 ML IV ONE (20:24)
[2018-06-11] MEDS ORDERED: MORPHINE SULFATE PF 5mg/10ml INJ (Duramorph) ONE (20:45)
[2018-06-11] MEDS ORDERED: DiphenhydrAMINE 25 MG CAPSULE PO PRN (21:18)
[2018-06-11] MEDS ORDERED: HYDROCORTISONE 2.5% CREAM 30gm RECTALLY PRN (21:18)
[2018-06-11] MEDS ORDERED: OXYTOCIN DRIP 30 UNIT/500 ML ML IV SCH (21:18)
[2018-06-11] MEDS: IBUPROFEN 800 MG TABLET PO PRN (21:20)
[2018-06-12] MEDS: IBUPROFEN 800 MG TABLET PO PRN ×3 (05:11→20:54)
--- NOTE | 2018-06-12 07:34 | Anesthesia Postoperative Note ---
- Date and Time Date: 06/11/18 Time: 22:00 - Status Patient Participated in Evaluation: Patient Participated in Person Vital Signs: Temperature 98.1 F 06/12/18 00:45 Pulse Rate 74 06/12/18 04:30 Respiratory Rate 16 06/12/18 04:30 Blood Pressure 122/62 06/12/18 04:30 Pulse Oximetry 100 06/12/18 04:30 Respiratory Function: Airway Patent Cardiovascular Function: Regular Pulse Mental Status: Alert and Oriented Pain Intensity: 0 Hydration: Taking PO Fluids Nausea/Vomiting: None Complications During Recover: None Apparent - Follow-Up Instructions Instructions: Per Surgeon
--- NOTE | 2018-06-12 08:10 | OB/GYN Progress Note ---
OB-PP Progress Note - General PPD1 Maternal Group B Strep: Negative Maternal Rh: positive Maternal Rubella Status: Immune - Subjective Date: 06/12/18 Lochia: Minimal Pain: controlled Voiding: akins still in place (due to labial edema) - Objective Vital Signs: Last Vital Signs Temp 98.1 F 06/12/18 00:45 Pulse 74 06/12/18 04:30 Resp 16 06/12/18 04:30 BP 122/62 06/12/18 04:30 Pulse Ox 100 06/12/18 04:30 Urine Output: good General: alert and oriented Abdomen: fundus firm, non-tender Extremities: non-tender - Assessment Assessment: FAVD - Plan Plan: routine care Expected date of discharge: 06/13/18
[2018-06-12] MEDS: DOCUSATE CALCIUM 240 MG CAPSULE PO SCH (09:18)
--- NOTE | 2018-06-12 12:19 | Labor and Delivery Note ---
DATE OF DELIVERY 06/11/2018 Sushila is a 33-year-old 1 at 39 weeks 6 days gestational age who presented to Maternal/Child with spontaneous rupture of membranes. She was not basia so she was started on Pitocin. My partner, Dr. Akins, placed a Chanel bulb for cervical ripening. Later my partner, Dr. Epstein, placed a DFM because the nurses were having a hard time tracing baby's heart rate. She received an epidural. When she was AC, I was able to put some pressure on the small remaining cervix to reduce it. Baby was in the ARNULFO position. Her first two hours of pushing, she made good progress and we were starting to see a little bit of baby's head. However, she really wore out and made no further progress beyond this. She was consented for an operative vaginal delivery with forceps. Risks were explained to the patient and her including but not limited to injury, brain hemorrhage and maternal laceration. Baby was at the +3/5 station in the ARNULFO position. The closed Olmedo forceps were placed and easily articulated. The baby's head was brought down to easily with one contraction. The forceps were removed as the head delivered. There was a tight cord around the posterior neck that was delivered through. Baby was vigorous at delivery so he was placed on mom's abdomen and the cord clamping was delayed for more than two minutes. The placenta delivered spontaneously. She was found to have a third-degree laceration as well as a right vaginal laceration. The tech put gloves on to retract for me. The vaginal laceration was repaired with running locked 2-0 Vicryl. The superior portion of the rectal sphincter was reapproximated. The lower portion of the rectal sphincter was repaired with four [id number] of 2-0 Vicryl. The remainder of the perineal laceration was repaired in the standard fashion. She was given a dose of TXA due to the bleeding from the lacerations. She was also given Duramorph and cefazolin due to the third degree tear. Estimated blood loss was 400 mL. Baby is a viable male infant, Apgars 8/9, weight 4206 grams. He has not been named yet. [facility]
[2018-06-12] MEDS: HYDROCODONE/APAP 5mg/325mg TABLET PO PRN ×2 (14:18→20:54)
[2018-06-13] MEDS: HYDROCODONE/APAP 5mg/325mg TABLET PO PRN ×2 (01:19→07:11)
--- NOTE | 2018-06-13 09:45 | OB/GYN Progress Note ---
OB-PP Progress Note - General PPD2 Maternal Group B Strep: Negative Maternal Rh: positive Maternal Rubella Status: Immune - Subjective Date: 06/13/18 Lochia: Minimal Pain: controlled Voiding: voiding - Objective Vital Signs: Last Vital Signs Temp 98.3 F 06/13/18 06:06 Pulse 78 06/13/18 06:06 Resp 18 06/13/18 06:06 BP 128/70 06/13/18 06:06 Pulse Ox 99 06/13/18 06:06 General: alert and oriented Abdomen: fundus firm, non-tender Extremities: non-tender - Assessment Assessment: FAVD (and 3rd degree laceration) - Plan Plan: routine care, discharge home, continue PNV
[2018-06-13] MEDS: DOCUSATE CALCIUM 240 MG CAPSULE PO SCH (10:39)
[2018-06-13] MEDS: IBUPROFEN 800 MG TABLET PO PRN (10:50)
[2018-06-13 11:05] VITALS: PULSE 82; RESP 16
[2018-06-13 14:41] VITALS: BP 128/71; TEMP 98.5; O2SAT 98
== END 2018-06-13 14:40 | disposition home or self-care (01) | DRG 775 ==
LOC: OBOBS 02:09 → MC 02:15
PROVIDERS: ADMIT Obstetrics & Gynecology; ATTEND Obstetrics & Gynecology